=== PATIENT | female | born 1960 | race Caucasian/White ===

== ENCOUNTER 2020-05-26 04:43 | Inpatient (IN) | payer OTHER ==
[~2020-05-26] VITALS: Ht 172.7 cm; Wt 60.1 kg
--- NOTE | 2020-05-26 04:56 | PHYS DOC ---
Past Medical History Past Medical History: COPD (MARIA EUGENIA MAYEN MD) Past Surgical History: Appendectomy (MARIA EUGENIA MAYEN MD) Smoking Status: Current Every Day Smoker Alcohol Use: Heavy (MARIA EUGENIA MAYEN MD) General Adult EDM: Chief Complaint: NAUSEA/VOMITING/DIARRHA HPI: HPI: 59-year-old female with a history of COPD and presents with 1 epigastric abdominal abdominal pain and nausea vomiting. Patient states she went to bed last night felt normal woke up about hour ago with nausea vomiting and abdominal pain starting in the epigastric radiating down to lower abdomen. Denies any fevers, chills, cough, or difficulty breathing. Patient states the pain is severe in nature and worse with palpation. Patient given for Zofran prior to arrival. Patient has a emesis bag and has bilious emesis possible red areas (MARIA EUGENIA MAYEN MD) Review of Systems: Review of Systems: Constitutional: Denies fever or chills. [] Eyes: Denies change in visual acuity. [] HENT: Denies nasal congestion or sore throat. [] Respiratory: Denies cough or shortness of breath. [] Cardiovascular: Denies chest pain or edema. [] GI: Denies abdominal pain, nausea, vomiting, bloody stools or diarrhea. [] : Denies dysuria. [] Musculoskeletal: Denies back pain or joint pain. [] Integument: Denies rash. [] Neurologic: Denies headache, focal weakness or sensory changes. [] Endocrine: Denies polyuria or polydipsia. [] Lymphatic: Denies swollen glands. [] Psychiatric: Denies depression or anxiety. [] (MARIA EUGENIA MAYEN MD) Heart Score: Risk Factors: Risk Factors: DM, Current or recent (<one month) smoker, HTN, HLP, family history of CAD, obesity. Risk Scores: Score 0 - 3: 2.5% MACE over next 6 weeks - Discharge Home Score 4 - 6: 20.3% MACE over next 6 weeks - Admit for Clinical Observation Score 7 - 10: 72.7% MACE over next 6 weeks - Early Invasive Strategies (MARIA EUGENIA MAYEN MD) Physical Exam: PE: Constitutional: Well developed, well nourished, no acute distress, non-toxic appearance. HENT: No trismus Eyes: Conjunctiva clear, EOMI Neck: Normal range of motion, no tenderness, supple, no stridor. [] Cardiovascular: Regular rate/rhythm, peripheral pulse intact, TRANSPORTATION SERVICES REPRESENTATIVE intact Lungs & Thorax: No respiratory distress Abdomen: Abdomen soft with diffuse tenderness to palpation epigastric and left- sided abdomen, no guarding or rebound Skin: Diffuse: Intact, no rash Back: Full ROM Extremities: Normal inspection, no edema Neurologic: Alert and oriented X 3, normal motor function, , no focal deficits noted. Psychologic: Affect normal, judgement normal, mood normal. (MARIA EUGENIA MAYEN MD) EKG: EKG: [Normal sinus rhythm with a rate of 83 normal [place] interval, left axis deviation, prolonged QTC, normal ST segments] (MARIA EUGENIA MAYEN MD) Radiology/Procedures: Radiology/Procedures: [] (MARIA EUGENIA MAYEN MD) Radiology/Procedures: PROCEDURE: CT ABD PELV W/ IV CONTRST ONLY EXAM: CT Abdomen and Pelvis with IV contrast INDICATION: Reason: ABD PAIN, N/V / Spl. Instructions: IV OMNI 300 75 MLS / History: TECHNIQUE: Multi-detector row CT images were acquired from the lung bases through the abdomen and pelvis with the use of IV contrast. Sagittal and coronal images were acquired from the transaxial data. All CT scans performed at this facility utilize dose optimization techniques as appropriate to the exam, including the following: Automated exposure control and adjustment of the mA and/or KV according to patient size (this includes techniques or standardized protocols for targeted exams where dose is indication/reason for exam). IV CONTRAST: Administered ORAL CONTRAST: Not administered COMPARISON: None FINDINGS: LOWER CHEST: Unremarkable LIVER: Unremarkable BILIARY SYSTEM: Gallbladder is unremarkable. Bile ducts are not dilated. PANCREAS: Diffusely thickened and shows moderate amount of peripancreatic fluid. There is heterogeneous hypoattenuation to the pancreatic head. SPLEEN: Unremarkable ADRENALS: Unremarkable KIDNEYS & URETERS: Unremarkable BLADDER: Unremarkable REPRODUCTIVE ORGANS: Unremarkable GASTROINTESTINAL: The stomach shows mild gastric wall thickening., small bowel, and colon are unremarkable. The appendix is not seen and may be surgically absent. MESENTERY/PERITONEUM/RETROPERITONEUM: Unremarkable VASCULAR: Unremarkable LYMPH NODES: No adenopathy OSSEOUS & SOFT TISSUES: Unremarkable IMPRESSION: Findings of acute pancreatitis with parenchymal edema best appreciated in the pancreatic head. No overt findings of parenchymal necrosis or abscess formation. (TANGELA BELTRAN DO) Course & Med Decision Making: Course & Med Decision Making Pertinent Labs and Imaging studies reviewed. (See chart for details) [Care endorsed to Dr. Quintana with the labs, CT, disposition pending.] (MARIA EUGENIA MAYEN MD) Course & Med Decision Making ED course: Evaluation reveals a 59-year-old female who is a heavy alcohol user who presents with abdominal pain. Her lipase is greater than 14,000. Her CT scan shows an inflamed pancreas. I talked with the patient and let her know that drinking alcohol would not be an option in the future she voiced an understanding. We will go ahead and get her admitted to the hospitalist service at this time patient is agreeable. (TANGELA BELTRAN DO) Dragon Disclaimer: Dragon Disclaimer: This electronic medical record was generated, in whole or in part, using a voice recognition dictation system. (MARIA EUGENIA MAYEN MD) Departure Departure Impression: Primary Impression: Pancreatitis, alcoholic, acute Qualified Codes: K85.20 - Alcohol induced acute pancreatitis without necrosis or infection Disposition: ADMITTED INPATIENT Admitting Physician: HIMS (TANGELA BELTRAN DO) Condition: GUARDED Justicifation of Admission Dx: Justifications for Admission: Justification of Admission Dx: N/A (MARIA EUGENIA MAYEN MD) Justification of Admission Dx: Yes Comments: Acute pancreatitis (TANGELA BELTRAN DO) MARIA EUGENIA MAYEN MD May 26, 2020 04:56 TANGELA BELTRAN DO May 26, 2020 06:52
[2020-05-26 05:27] LABS: BASO % 0 % (0-3); EOS # 0.1 x10^3/uL (0.0-0.7); EOS % 1 % (0-3); HEMATOCRIT 42.6 % (36.0-47.0); HEMOGLOBIN 14.7 g/dL (12.0-15.5); LYMPH % 26 % (24-48); MEAN CORPUSCULAR HEMOGLOBIN 34 pg (25-35); MEAN CORPUSCULAR HGB CONC 35 g/dL (31-37); MEAN CORPUSCULAR VOLUME 98 fL (79-100); MONO # 0.6 x10^3/uL (0.0-1.1); MONO % 7 % (0-9); NEUT # 5.1 x10^3/uL (1.8-7.7); NEUT % 65 % (31-73); PLATELET COUNT 195 x10^3/uL (140-400); RED BLOOD COUNT 4.33 x10^6/uL (3.50-5.40); RED CELL DISTRIBUTION WIDTH 13.4 % (11.5-14.5); WHITE BLOOD COUNT 7.8 x10^3/uL (4.0-11.0)
[2020-05-26] MEDS ORDERED: ONDANSETRON PF 4 MG/2 ML VIAL. IVP ONE (05:30)
[2020-05-26] MEDS ORDERED: IV NORMAL SALINE 1000ML BAG 1,000 ML IV SCH (05:30)
[2020-05-26] MEDS ORDERED: MORPHINE SULFATE 4 MG/ML VIAL. IV ONE (05:30)
[2020-05-26 05:35] LABS: ALBUMIN 3.4 g/dL (3.4-5.0); ALBUMIN/GLOBULIN RATIO 0.9 (1.0-1.7); CALCIUM 9.5 mg/dL (8.5-10.1); CREATININE 0.8 mg/dL (0.6-1.0); GFR 73.2; TOTAL BILIRUBIN 0.4 mg/dL (0.2-1.0); TOTAL PROTEIN 7.4 g/dL (6.4-8.2)
[2020-05-26 05:36] LABS: PROTHROMBIN TIME PATIENT 11.7 SEC (11.7-14.0)
[2020-05-26] MEDS ORDERED: ACETAMINOPHEN 325 MG TABLET. PO PRN (06:15)
[2020-05-26] MEDS ORDERED: ONDANSETRON PF 4 MG/2 ML VIAL. IV PRN ×2 (06:15→09:30)
[2020-05-26] MEDS ORDERED: IOHEXOL 300 MG/ML 100ML VIAL. IV ONE (06:30)
[2020-05-26] MEDS ORDERED: CONTRAST GIVEN. MC PRN (06:30)
--- NOTE | 2020-05-26 06:43 | RAD ---
EXAM: CT Abdomen and Pelvis with IV contrast INDICATION: Reason: ABD PAIN, N/V / Spl. Instructions: IV OMNI 300 75 MLS / History: TECHNIQUE: Multi-detector row CT images were acquired from the lung bases through the abdomen and pelvis with the use of IV contrast. Sagittal and coronal images were acquired from the transaxial data. All CT scans performed at this facility utilize dose optimization techniques as appropriate to the exam, including the following: Automated exposure control and adjustment of the mA and/or KV according to patient size (this includes techniques or standardized protocols for targeted exams where dose is indication/reason for exam). IV CONTRAST: Administered ORAL CONTRAST: Not administered COMPARISON: None FINDINGS: LOWER CHEST: Unremarkable LIVER: Unremarkable BILIARY SYSTEM: Gallbladder is unremarkable. Bile ducts are not dilated. PANCREAS: Diffusely thickened and shows moderate amount of peripancreatic fluid. There is heterogeneous hypoattenuation to the pancreatic head. SPLEEN: Unremarkable ADRENALS: Unremarkable KIDNEYS & URETERS: Unremarkable BLADDER: Unremarkable REPRODUCTIVE ORGANS: Unremarkable GASTROINTESTINAL: The stomach shows mild gastric wall thickening., small bowel, and colon are unremarkable. The appendix is not seen and may be surgically absent. MESENTERY/PERITONEUM/RETROPERITONEUM: Unremarkable VASCULAR: Unremarkable LYMPH NODES: No adenopathy OSSEOUS & SOFT TISSUES: Unremarkable IMPRESSION: Findings of acute pancreatitis with parenchymal edema best appreciated in the pancreatic head. No overt findings of parenchymal necrosis or abscess formation. Electronically signed by: Pilo Kelley MD (05/26/2020 6:40 AM) [facility] [place]
--- NOTE | 2020-05-26 08:03 | PDOC1 ---
History and Physical Date of Admission Date of Admission DATE: 05/26/20 TIME: 08:03 Identification/Chief Complaint Chief Complaint seen in er with severe pancreatitis 59-year-old female with a history of COPD and presented with, epigastric abdominal abdominal pain and nausea vomiting. Patient states she went to bed last night felt normal woke up about hour ago with nausea vomiting and abdominal pain starting in the epigastric radiating down to lower abdomen. Denies any fevers, chills, cough, or difficulty breathing. Patient states the pain is severe in nature and worse with palpation. Past Medical History Past Medical History Past Medical History Past Medical History: COPD Past Surgical History: Appendectomy Smoking Status: Current Every Day Smoker Alcohol Use: Heavy FHX COPD Psych: Addictions Family History Family History: Alcohol Abuse Social History Smoke: <1 pack per day ALCOHOL: heavy Drugs: None Current Problem List Problem List Problems Medical Problems: (1) Abdominal pain Status: Acute (2) Pancreatitis, alcoholic, acute Status: Acute Current Medications Current Medications Current Medications Sodium Chloride 1,000 ml @ 1,000 mls/hr Q1H IV Last administered on 05/26/20at 05:46; Start 05/26/20 at 05:30; Stop 05/26/20 at 06:29; Status DC Ondansetron HCl (Zofran) 4 mg 1X ONCE IVP Last administered on 05/26/20at 05:44; Start 05/26/20 at 05:30; Stop 05/26/20 at 05:31; Status DC Morphine Sulfate (Morphine Sulfate) 4 mg 1X ONCE IV Last administered on 05/26/20at 05:45; Start 05/26/20 at 05:30; Stop 05/26/20 at 05:31; Status DC Iohexol (Omnipaque 300 Mg/ml) 75 ml 1X ONCE IV Last administered on 05/26/20at 06:24; Start 05/26/20 at 06:30; Stop 05/26/20 at 06:31; Status DC Info (CONTRAST GIVEN -- Rx MONITORING) 1 each PRN DAILY PRN MC SEE COMMENTS; Start 05/26/20 at 06:30; Stop 05/28/20 at 06:29 Ondansetron HCl (Zofran) 4 mg PRN Q8HRS PRN IV NAUSEA/VOMITING 1ST CHOICE; Start 05/26/20 at 06:15; Stop 05/27/20 at 06:14 Fentanyl Citrate (Fentanyl 2ml Vial) 50 mcg PRN Q1HR PRN IV SEVERE PAIN 7-10; Start 05/26/20 at 06:15; Stop 05/27/20 at 06:14 Sodium Chloride 1,000 ml @ 150 mls/hr Q6H40M IV ; Start 05/26/20 at 07:00; Stop 05/27/20 at 06:59 Acetaminophen (Tylenol) 650 mg PRN Q4HRS PRN PO FEVER > 100.3'F; Start 05/26/20 at 06:15; Stop 05/27/20 at 06:14 Multivitamins 10 ml/Thiamine HCl 100 mg/Folic Acid 1 mg/Sodium Chloride 1,011.2 ml @ 100 mls/ hr DAILY IV ; Start 05/26/20 at 07:00; Stop 05/30/20 at 19:07 Lorazepam (Ativan) 2 mg Q6H PO ; Start 05/26/20 at 07:00; Stop 05/27/20 at 13:01 Allergies Allergies: Coded Allergies: Aminoglycosides (Verified Allergy, Intermediate, 05/26/20) Cephalosporins (Verified Allergy, Intermediate, 05/26/20) Macrolide Antibiotics (Verified Allergy, Intermediate, 05/26/20) Penicillins (Verified Allergy, Intermediate, 05/26/20) Quinolones (Verified Allergy, Intermediate, 05/26/20) Sulfa (Sulfonamide Antibiotics) (Verified Allergy, Intermediate, 05/26/20) Tetracyclines (Verified Allergy, Intermediate, 05/26/20) ROS Review of System Review of Systems: Review of Systems: Constitutional: Denies fever or chills. [] Eyes: Denies change in visual acuity. [] HENT: Denies nasal congestion or sore throat. [] Respiratory: Denies cough or shortness of breath. [] Cardiovascular: Denies chest pain or edema. [] GI: pos abdominal pain, nausea, vomiting [] : Denies dysuria. [] Musculoskeletal: Denies back pain or joint pain. [] Integument: Denies rash. [] Neurologic: Denies headache, focal weakness or sensory changes. [] Endocrine: Denies polyuria or polydipsia. [] Lymphatic: Denies swollen glands. [] Psychiatric: Denies depression or anxiety. [] 14 pt ros otherwise neg Hematological and Lymphatic: No: Bleeding Problems, Blood Clots, Blood Thomas sfusions, Brusing, Night Sweats, Pallor, Swollen Lymph Nodes, Other Gastrointestinal: Yes Nausea, Yes Vomiting, Yes Abdominal Pain Musculoskeletal: No Gait Disturbance, No Joint Pain, No Joint Stiffness, No Joint Swelling, No Muscle Pain, No Muscular Weakness, No Pain In:, No Swelling In:, No Other Physical Exam Physical Exam Constitutional: Well developed, well nourished, no acute distress, non-toxic appearance. HENT: No trismus Eyes: Conjunctiva clear, EOMI Neck: Normal range of motion, no tenderness, supple, no stridor. [] Cardiovascular: Regular rate/rhythm, peripheral pulse intact, ART SUPERVISOR intact Lungs & Thorax: No respiratory distress Abdomen: Abdomen soft with diffuse tenderness to palpation epigastric and left- sided abdomen, no guarding or rebound Skin: Diffuse: Intact, no rash Back: Full ROM Extremities: Normal inspection, no edema Neurologic: Alert and oriented X 3, normal motor function, , no focal deficits noted. Psychologic: Affect normal, judgement normal, mood normal. General: Alert, Oriented X3, Cooperative HEENT: Atraumatic, EOMI, Mucous membr. moist/pink Lungs: Clear to auscultation, Normal air movement Heart: S1S2, RRR, no thrills, no gallops, no murmurs Breasts: Not examined Abdomen: No hepatosplenomegaly Rectal Exam: not examined PELVIC: Examination not indicated Extremities: No cyanosis, No edema Neuro: Normal speech, Normal tone, Sensation intact, Cranial nerves 3-12 NL Psych/Mental Status: Mood NL Vitals Vitals Vital Signs Date Time Temp Pulse Resp B/P (MAP) Pulse Ox O2 Delivery O2 Flow Rate FiO2 05/26/20 06:12 96 18 157/92 (113) 96 Nasal Cannula 2.0 05/26/20 05:11 98.2 98.2 Labs Labs Laboratory Tests Test 05/26/20 05:05 White Blood Count 7.8 x10^3/uL (4.0-11.0) Red Blood Count 4.33 x10^6/uL (3.50-5.40) Hemoglobin 14.7 g/dL (12.0-15.5) Hematocrit 42.6 % (36.0-47.0) Mean Corpuscular Volume 98 fL (79-100) Mean Corpuscular Hemoglobin 34 pg (25-35) Mean Corpuscular Hemoglobin Concent 35 g/dL (31-37) Red Cell Distribution Width 13.4 % (11.5-14.5) Platelet Count 195 x10^3/uL (140-400) Neutrophils (%) (Auto) 65 % (31-73) Lymphocytes (%) (Auto) 26 % (24-48) Monocytes (%) (Auto) 7 % (0-9) Eosinophils (%) (Auto) 1 % (0-3) Basophils (%) (Auto) 0 % (0-3) Neutrophils # (Auto) 5.1 x10^3/uL (1.8-7.7) Lymphocytes # (Auto) 2.0 x10^3/uL (1.0-4.8) Monocytes # (Auto) 0.6 x10^3/uL (0.0-1.1) Eosinophils # (Auto) 0.1 x10^3/uL (0.0-0.7) Basophils # (Auto) 0.0 x10^3/uL (0.0-0.2) Prothrombin Time 11.7 SEC (11.7-14.0) Prothromb Time International Ratio 0.9 (0.8-1.1) Activated Partial Thromboplast Time 23 SEC (24-38) Sodium Level 142 mmol/L (136-145) Potassium Level 3.0 mmol/L (3.5-5.1) Chloride Level 100 mmol/L (98-107) Carbon Dioxide Level 30 mmol/L (21-32) Anion Gap 12 (6-14) Blood Urea Nitrogen 7 mg/dL (7-20) Creatinine 0.8 mg/dL (0.6-1.0) Estimated GFR (Cockcroft-Gault) 73.2 BUN/Creatinine Ratio 9 (6-20) Glucose Level 109 mg/dL (70-99) Calcium Level 9.5 mg/dL (8.5-10.1) Total Bilirubin 0.4 mg/dL (0.2-1.0) Aspartate Amino Transf (AST/SGOT) 46 U/L (15-37) Alanine Aminotransferase (ALT/SGPT) 50 U/L (14-59) Alkaline Phosphatase 101 U/L (46-116) Total Protein 7.4 g/dL (6.4-8.2) Albumin 3.4 g/dL (3.4-5.0) Albumin/Globulin Ratio 0.9 (1.0-1.7) Lipase 96382 U/L (73-393) Laboratory Tests Test 05/26/20 05:05 White Blood Count 7.8 x10^3/uL (4.0-11.0) Red Blood Count 4.33 x10^6/uL (3.50-5.40) Hemoglobin 14.7 g/dL (12.0-15.5) Hematocrit 42.6 % (36.0-47.0) Mean Corpuscular Volume 98 fL (79-100) Mean Corpuscular Hemoglobin 34 pg (25-35) Mean Corpuscular Hemoglobin Concent 35 g/dL (31-37) Red Cell Distribution Width 13.4 % (11.5-14.5) Platelet Count 195 x10^3/uL (140-400) Neutrophils (%) (Auto) 65 % (31-73) Lymphocytes (%) (Auto) 26 % (24-48) Monocytes (%) (Auto) 7 % (0-9) Eosinophils (%) (Auto) 1 % (0-3) Basophils (%) (Auto) 0 % (0-3) Neutrophils # (Auto) 5.1 x10^3/uL (1.8-7.7) Lymphocytes # (Auto) 2.0 x10^3/uL (1.0-4.8) Monocytes # (Auto) 0.6 x10^3/uL (0.0-1.1) Eosinophils # (Auto) 0.1 x10^3/uL (0.0-0.7) Basophils # (Auto) 0.0 x10^3/uL (0.0-0.2) Prothrombin Time 11.7 SEC (11.7-14.0) Prothromb Time International Ratio 0.9 (0.8-1.1) Activated Partial Thromboplast Time 23 SEC (24-38) Sodium Level 142 mmol/L (136-145) Potassium Level 3.0 mmol/L (3.5-5.1) Chloride Level 100 mmol/L (98-107) Carbon Dioxide Level 30 mmol/L (21-32) Anion Gap 12 (6-14) Blood Urea Nitrogen 7 mg/dL (7-20) Creatinine 0.8 mg/dL (0.6-1.0) Estimated GFR (Cockcroft-Gault) 73.2 BUN/Creatinine Ratio 9 (6-20) Glucose Level 109 mg/dL (70-99) Calcium Level 9.5 mg/dL (8.5-10.1) Total Bilirubin 0.4 mg/dL (0.2-1.0) Aspartate Amino Transf (AST/SGOT) 46 U/L (15-37) Alanine Aminotransferase (ALT/SGPT) 50 U/L (14-59) Alkaline Phosphatase 101 U/L (46-116) Total Protein 7.4 g/dL (6.4-8.2) Albumin 3.4 g/dL (3.4-5.0) Albumin/Globulin Ratio 0.9 (1.0-1.7) Lipase 85238 U/L (73-393) Images Images INDICATION: Reason: ABD PAIN, N/V / Spl. Instructions: IV OMNI 300 75 MLS / History: TECHNIQUE: Multi-detector row CT images were acquired from the lung bases through the abdomen and pelvis with the use of IV contrast. Sagittal and coronal images were acquired from the transaxial data. All CT scans performed at this facility utilize dose optimization techniques as appropriate to the exam, including the following: Automated exposure control and adjustment of the mA and/or KV according to patient size (this includes techniques or standardized protocols for targeted exams where dose is indication/reason for exam). IV CONTRAST: Administered ORAL CONTRAST: Not administered COMPARISON: None FINDINGS: LOWER CHEST: Unremarkable LIVER: Unremarkable BILIARY SYSTEM: Gallbladder is unremarkable. Bile ducts are not dilated. PANCREAS: Diffusely thickened and shows moderate amount of peripancreatic fluid. There is heterogeneous hypoattenuation to the pancreatic head. SPLEEN: Unremarkable ADRENALS: Unremarkable KIDNEYS & URETERS: Unremarkable BLADDER: Unremarkable REPRODUCTIVE ORGANS: Unremarkable GASTROINTESTINAL: The stomach shows mild gastric wall thickening., small bowel, and colon are unremarkable. The appendix is not seen and may be surgically absent. MESENTERY/PERITONEUM/RETROPERITONEUM: Unremarkable VASCULAR: Unremarkable LYMPH NODES: No adenopathy OSSEOUS & SOFT TISSUES: Unremarkable IMPRESSION: Findings of acute pancreatitis with parenchymal edema best appreciated in the pancreatic head. No overt findings of parenchymal necrosis or abscess formation. Electronically signed by: Raheel Kelley MD (05/26/2020 6:40 AM) [facility] [place] DICTATED and SIGNED BY: RAHEEL KELLEY MD DATE: 05/26/20 0640 VTE Prophylaxis Ordered VTE Prophylaxis Devices: Yes VTE Pharmacological Prophylaxi: Yes Assessment/Plan Assessment/Plan impression Pancreatitis, alcoholic, acute, Alcohol induced acute pancreatitis without necrosis or infection Findings of acute pancreatitis with parenchymal edema best appreciated in the pancreatic head. ON CT 05/26 No overt findings of parenchymal necrosis or abscess formation severe alcohol abuse ADMITTED GI CONSULT NPO IV BANANA BAG PAIN CONTROL DVT PROPHYLAXIS CIWA PROTOCOL r/o gallstones for completeness. 74 MIN pt exam, chart review, > 50% of time spent with exam, chart review, pt care coordination Justicifation of Admission Dx: Justifications for Admission: Justification of Admission Dx: Yes RAYMUNDO FORD MD May 26, 2020 08:03
[2020-05-26] MEDS: MULTIVIT INFUSN,ADULT 4,VIT K 10 ML, THIAMINE INJ 100 MG, FOLIC ACID INJ 1 MG in IV NOR... IV SCH (08:11)
[2020-05-26] MEDS: LORazepam 0.5 MG TABLET PO SCH ×3 (08:19→18:09)
[2020-05-26] MEDS: fentaNYL PF VIAL 100 MCG/2 ML VIAL IV PRN ×3 (08:22→21:39)
[2020-05-26 08:38] LABS: BILIRUBIN,URINE NEGATIVE (NEG); CLARITY,URINE CLEAR; COLOR,URINE YELLOW; NITRITE,URINE NEGATIVE (NEG); PROTEIN,URINE NEGATIVE (NEG-TRACE); UROBILINOGEN,URINE 0.2 mg/dL (0.2 mg/dL)
[2020-05-26 08:50] LABS: BARBITURATES NEG (NEG); BENZODIAZEPINES NEG (NEG); CANNABINOIDS NEG (NEG); COCAINE NEG (NEG); METHADONE NEG (NEG); OPIATES POS (NEG); PHENCYCLIDINE NEG (NEG)
[2020-05-26 08:57] LABS: AMPHETAMINE/METHAMPHETAMINE NEG (NEG)
[2020-05-26 09:00] VITALS: BP 174/108
[2020-05-26 09:04] LABS: BACTERIA,URINE FEW /HPF (0-FEW); RBC,URINE 0 /HPF (0-2); SQUAMOUS EPITHELIAL CELL,UR MOD /LPF; WBC,URINE 0 /HPF (0-4)
--- NOTE | 2020-05-26 09:20 | PDOC2 ---
GI CONSULT Reason For Consult: pancreatitis HPI: HPI: 59 y/o female seen in ER. "I've been sick for awhile." Describes coughing in the mornings, then "throwing up" phlegm. Epigastric/mid abd pain began yesterday, some radiation to back (though chronic back pain), associated w/ "dark" emesis. H/o GERD untreated. No dysphagia, diarrhea, constipation, hematochezia, melena, change in appetite, or weight loss. Colonoscopy @ [facility] reportedly normal ~4 years ago. No previous EGD. No GB, liver, pancreas, or PUD history. Ibuprofen daily for back pain. PMH: PMH: COPD, anxiety, insomnia, appendectomy Social History: Smoke: <1 pack per day ALCOHOL: heavy (four 25 oz beers daily) Drugs: None ROS: GEN: Denies fevers, chills, sweats HEENT: Denies blurred vision, sore throat CV: Denies chest pain RESP: +SOA +cough GI: Per HPI : Denies hematuria, dysuria ENDO: Denies weight changes NEURO: Denies confusion, dizziness MSK: +back pain SKIN: Denies jaundice, pruritus Vitals: Vitals: Vital Signs Date Time Temp Pulse Resp B/P (MAP) Pulse Ox O2 Delivery O2 Flow Rate FiO2 05/26/20 09:00 97.4 101 20 174/108 (130) 97 Nasal Cannula 97.4 05/26/20 08:22 2.0 Labs: Labs: Laboratory Tests Test 05/26/20 05:05 05/26/20 08:00 05/26/20 08:25 White Blood Count 7.8 x10^3/uL (4.0-11.0) Red Blood Count 4.33 x10^6/uL (3.50-5.40) Hemoglobin 14.7 g/dL (12.0-15.5) Hematocrit 42.6 % (36.0-47.0) Mean Corpuscular Volume 98 fL (79-100) Mean Corpuscular Hemoglobin 34 pg (25-35) Mean Corpuscular Hemoglobin Concent 35 g/dL (31-37) Red Cell Distribution Width 13.4 % (11.5-14.5) Platelet Count 195 x10^3/uL (140-400) Neutrophils (%) (Auto) 65 % (31-73) Lymphocytes (%) (Auto) 26 % (24-48) Monocytes (%) (Auto) 7 % (0-9) Eosinophils (%) (Auto) 1 % (0-3) Basophils (%) (Auto) 0 % (0-3) Neutrophils # (Auto) 5.1 x10^3/uL (1.8-7.7) Lymphocytes # (Auto) 2.0 x10^3/uL (1.0-4.8) Monocytes # (Auto) 0.6 x10^3/uL (0.0-1.1) Eosinophils # (Auto) 0.1 x10^3/uL (0.0-0.7) Basophils # (Auto) 0.0 x10^3/uL (0.0-0.2) Prothrombin Time 11.7 SEC (11.7-14.0) Prothromb Time International Ratio 0.9 (0.8-1.1) Activated Partial Thromboplast Time 23 SEC (24-38) Sodium Level 142 mmol/L (136-145) Potassium Level 3.0 mmol/L (3.5-5.1) Chloride Level 100 mmol/L (98-107) Carbon Dioxide Level 30 mmol/L (21-32) Anion Gap 12 (6-14) Blood Urea Nitrogen 7 mg/dL (7-20) Creatinine 0.8 mg/dL (0.6-1.0) Estimated GFR (Cockcroft-Gault) 73.2 BUN/Creatinine Ratio 9 (6-20) Glucose Level 109 mg/dL (70-99) Calcium Level 9.5 mg/dL (8.5-10.1) Total Bilirubin 0.4 mg/dL (0.2-1.0) Aspartate Amino Transf (AST/SGOT) 46 U/L (15-37) Alanine Aminotransferase (ALT/SGPT) 50 U/L (14-59) Alkaline Phosphatase 101 U/L (46-116) Total Protein 7.4 g/dL (6.4-8.2) Albumin 3.4 g/dL (3.4-5.0) Albumin/Globulin Ratio 0.9 (1.0-1.7) Lipase 44449 U/L (73-393) Urine Opiates Screen Pos (NEG) Urine Methadone Screen Neg (NEG) Urine Barbiturates Neg (NEG) Urine Phencyclidine Screen Neg (NEG) Urine Amphetamine/Methamphetamine Neg (NEG) Urine Benzodiazepines Screen Neg (NEG) Urine Cocaine Screen Neg (NEG) Urine Cannabinoids Screen Neg (NEG) Urine Ethyl Alcohol Pos (NEG) Urine Collection Type Unknown Urine Color Yellow Urine Clarity Clear Urine pH 7.0 (<5.0-8.0) Urine Specific [place] 1.020 (1.000-1.030) Urine Protein Negative mg/dL (NEG-TRACE) Urine Glucose (UA) Negative mg/dL (NEG) Urine Ketones (Stick) Negative mg/dL (NEG) Urine Blood Negative (NEG) Urine Nitrite Negative (NEG) Urine Bilirubin Negative (NEG) Urine Urobilinogen Dipstick 0.2 mg/dL (0.2 mg/dL) Urine Leukocyte Esterase Negative (NEG) Urine RBC 0 /HPF (0-2) Urine WBC 0 /HPF (0-4) Urine Squamous Epithelial Cells Mod /LPF Urine Bacteria Few /HPF (0-FEW) Allergies: Coded Allergies: Aminoglycosides (Verified Allergy, Intermediate, 05/26/20) Cephalosporins (Verified Allergy, Intermediate, 05/26/20) Macrolide Antibiotics (Verified Allergy, Intermediate, 05/26/20) Penicillins (Verified Allergy, Intermediate, 05/26/20) Quinolones (Verified Allergy, Intermediate, 05/26/20) Sulfa (Sulfonamide Antibiotics) (Verified Allergy, Intermediate, 05/26/20) Tetracyclines (Verified Allergy, Intermediate, 05/26/20) Medications: Current Medications Medications (Trade) Dose Ordered Sig/Kurt Route PRN Reason Start Time Stop Time Status Last Admin Dose Admin Sodium Chloride 1,000 ml @ 1,000 mls/hr Q1H IV 05/26/20 05:30 05/26/20 06:29 DC 05/26/20 05:46 Ondansetron HCl (Zofran) 4 mg 1X ONCE IVP 05/26/20 05:30 05/26/20 05:31 DC 05/26/20 05:44 Morphine Sulfate (Morphine Sulfate) 4 mg 1X ONCE IV 05/26/20 05:30 05/26/20 05:31 DC 05/26/20 05:45 Iohexol (Omnipaque 300 Mg/ml) 75 ml 1X ONCE IV 7/20/20 06:30 05/26/20 06:31 DC 05/26/20 06:24 Fentanyl Citrate (Fentanyl 2ml Vial) 50 mcg PRN Q1HR PRN IV SEVERE PAIN 7-10 05/26/20 06:15 05/27/20 06:14 05/26/20 08:22 Multivitamins 10 ml/Thiamine HCl 100 mg/Folic Acid 1 mg/Sodium Chloride 1,011.2 ml @ 100 mls/ hr DAILY IV 05/26/20 07:00 05/30/20 19:07 05/26/20 08:11 Lorazepam (Ativan) 2 mg Q6H PO 05/26/20 07:00 05/27/20 13:01 05/26/20 08:19 Imaging: Imaging: CT A/P IMPRESSION: Findings of acute pancreatitis with parenchymal edema best appreciated in the pancreatic head. No overt findings of parenchymal necrosis or abscess formation. PE: GEN: NAD HEENT: Atraumatic, PERRL LUNGS: diminished HEART: RRR ABD: quiet, soft, epigastrium quite tender to light touch EXTREMITY: No edema SKIN: No rashes, no jaundice NEURO/PSYCH: A & O 3, drowsy A/P: A/P: Pancreatitis - likely 2/2 to alcohol GERD, possible gastric wall thickening on CT CRC screen - UTD Chronic back pain, NSAID use -- NPO. IVF, withdrawal precautions, and pain control per primary. IV PPI. Abd US r/o gallstones for completeness. DEEJAY GARIBAY May 26, 2020 09:20
[2020-05-26] MEDS ORDERED: MULTIVIT INFUSN,ADULT 4,VIT K 10 ML, THIAMINE INJ 100 MG, FOLIC ACID INJ 1 MG in IV NOR... IV ONE (09:30)
[2020-05-26] MEDS ORDERED: ACETAMINOPHEN 650 MG SUPP.RECT. PR PRN (09:30)
[2020-05-26] MEDS ORDERED: DOCUSATE SODIUM 100 MG CAPSULE. PO PRN (09:30)
[2020-05-26] MEDS ORDERED: 0.9 % SODIUM CHLORIDE 10 ML DISP.SYRIN. IV PRN (09:30)
[2020-05-26] MEDS ORDERED: SODIUM PHOSPHATES 19/7GM 133 ML ENEMA. PR PRN (09:30)
--- NOTE | 2020-05-26 10:00 | NUR ---
admitted from the er with upper quad pain/pancreatitis. she is drowsy and does not want to answer questions. states she is on 2 meds and [facility] called and got a list of her medication. she denied that she had HTN but is on a bp med. poor historian. does state that she drinks alcohol daily 4 large tallboys daily . last drink was last night before the pain and emesis
[2020-05-26] MEDS ORDERED: METH-38 PO (10:27)
[2020-05-26] MEDS ORDERED: HYDR25TA PO (10:27)
[2020-05-26] MEDS ORDERED: PRAZ1CAP2 PO (10:27)
[2020-05-26] MEDS ORDERED: TIOT18CA IH (10:27)
[2020-05-26] MEDS ORDERED: ALBU2.5V8 IH (10:27)
[2020-05-26] MEDS ORDERED: VENL150T PO (10:27)
[2020-05-26] MEDS ORDERED: TRAZ-118 PO (10:27)
[2020-05-26 11:00] VITALS: BP 173/107
--- NOTE | 2020-05-26 11:50 | EKG ---
[facility] [address] [place] [address] Test Date: 2020-05-26 Test Time: 05:36:25 Pat Name: MILES SILVESTRE Department: Room: Gender: F Range [employer]ologist: : 1960 Requested By: MARIA EUGENIA MAYEN Order Number: [id number] Reading MD: Measurements Intervals [place] Rate: 83 P: 51 AK: 172 QRS: -15 QRSD: 84 T: 60 QT: 408 QTc: 486 Interpretive Statements SINUS RHYTHM LEFTWARD AXIS R-S TRANSITION ZONE IN V LEADS DISPLACED TO THE RIGHT PROLONGED QT NO SPECIFIC ECG ABNORMALITIES RI6.02 No previous ECG available for comparison
[2020-05-26] MEDS: IPRATRPIUM/ALBUTEROL 0.5/2.5MG 3 ML NEBU. NEB SCH ×3 (12:22→19:49)
[2020-05-26] MEDS ORDERED: ALBUTEROL SULFATE 2.5 MG/3 ML NEBU. NEB PRN (12:30)
--- NOTE | 2020-05-26 12:31 | RAD ---
Examination: Ultrasound abdomen limited HISTORY: History of pancreatitis, gallstones COMPARISON: None available. FINDINGS: Mild increased echogenicity identified in the liver likely hepatic steatosis. The liver length measures 16.4 cm. No evidence of gallstones. The right kidney measures 10.7 cm in length. Hypoechogenicity identified in the pancreas probably secondary to pancreatitis. The visualized IVC is normal limits of dimension. IMPRESSION: 1. Hepatic steatosis. 2. Prominent appearing and hypoechoic pancreas probably known pancreatitis. Electronically signed by: Hayden Cruz MD (05/26/2020 12:28 PM) [id number]
[2020-05-26] MEDS: ENOXAPARIN 40 MG/0.4 ML SYRINGE. SQ SCH (12:50)
[2020-05-26] MEDS: hydrALAZINE 20 MG/ML VIAL. IVP PRN ×2 (12:52→20:09)
[2020-05-26] MEDS: hydrOXYzine 25 MG TABLET PO PRN (14:36)
[2020-05-26] MEDS: METHOCARBAMOL 750 MG TABLET PO PRN (14:36)
[2020-05-26] MEDS: VENLAFAXINE 50 MG TABLET. PO SCH ×2 (14:40→21:27)
[2020-05-26 15:11] VITALS: BP 139/84
--- NOTE | 2020-05-26 15:43 | NUR ---
medications renewed and given with sips of water; otherwise remains npo. ambulated to the bathroom with assist. states that her legs feel shaky. Addendum: 05/26/20 at 1546 by OMI DECKER RN was given a dose of hydralazine and blood pressure is better.
--- NOTE | 2020-05-26 16:57 | NUR ---
SW following. Spoke with RN and reviewed chart. Pt from home. Pt on 2l 02. Pt on IV Fentanyl. Pt's toxicology screen positive for alcohol. SW completed referral to PAT. Pt seen by Portillo with PAT today. Pt had [facility] and is not interested in treatment at this time. Pt reported he drinks 4 32oz beers daily and has contact information for out-patient substance abuse treatment with the [facility]. Pt denies SI/HI per Portillo. ENA to follow for discharge planning.
[2020-05-26] MEDS: IV NORMAL SALINE 1000ML BAG 1,000 ML IV SCH ×3 (18:09→21:33)
[2020-05-26 19:00] VITALS: BP 169/105
[2020-05-26] MEDS: PRAZOSIN 1 MG CAPSULE. PO SCH (21:27)
[2020-05-26] MEDS: traZODone 50 MG TABLET. PO SCH (21:27)
[2020-05-26 23:00] VITALS: BP 156/75
[2020-05-27] MEDS: LORazepam 0.5 MG TABLET PO SCH (01:00)
[2020-05-27] MEDS: IV NORMAL SALINE 1000ML BAG 1,000 ML IV SCH ×2 (01:27→03:00)
[2020-05-27 03:00] VITALS: BP 141/86
[2020-05-27] MEDS: METHOCARBAMOL 750 MG TABLET PO PRN ×3 (03:55→20:47)
[2020-05-27 06:47] LABS: BASO % 0 % (0-3); EOS % 0 % (0-3); HEMATOCRIT 39.7 % (36.0-47.0); HEMOGLOBIN 13.4 g/dL (12.0-15.5); LYMPH # 0.6 x10^3/uL (1.0-4.8); LYMPH % 5 % (24-48); MEAN CORPUSCULAR HEMOGLOBIN 34 pg (25-35); MEAN CORPUSCULAR HGB CONC 34 g/dL (31-37); MEAN CORPUSCULAR VOLUME 100 fL (79-100); MONO # 0.6 x10^3/uL (0.0-1.1); MONO % 6 % (0-9); NEUT # 9.1 x10^3/uL (1.8-7.7); NEUT % 88 % (31-73); PLATELET COUNT 142 x10^3/uL (140-400); RED BLOOD COUNT 3.96 x10^6/uL (3.50-5.40); RED CELL DISTRIBUTION WIDTH 13.3 % (11.5-14.5); WHITE BLOOD COUNT 10.4 x10^3/uL (4.0-11.0)
[2020-05-27 07:00] VITALS: BP 174/99
[2020-05-27 07:07] LABS: ALBUMIN 2.7 g/dL (3.4-5.0); ALBUMIN/GLOBULIN RATIO 0.8 (1.0-1.7); CALCIUM 8.4 mg/dL (8.5-10.1); CREATININE 0.7 mg/dL (0.6-1.0); GFR 85.4; POTASSIUM 3.4 mmol/L (3.5-5.1); TOTAL BILIRUBIN 0.5 mg/dL (0.2-1.0); TOTAL PROTEIN 6.1 g/dL (6.4-8.2)
[2020-05-27] MEDS: IPRATRPIUM/ALBUTEROL 0.5/2.5MG 3 ML NEBU. NEB SCH ×4 (07:13→19:24)
[2020-05-27 07:30] LABS: % LYMPHS 1 % (24-48); % MONOS 1 % (0-10); % SEGS 98 % (35-66); PLT ESTIMATE ADEQUATE (ADEQUATE)
--- NOTE | 2020-05-27 08:23 | PDOC ---
PROGRESS NOTES Chief Complaint Chief Complaint VTE Prophylaxis Ordered VTE Prophylaxis Devices: Yes VTE Pharmacological Prophylaxi: Yes IMPRESSION========= Pancreatitis, alcoholic, acute, Alcohol induced acute pancreatitis without necrosis or infection Findings of acute pancreatitis with parenchymal edema best appreciated in the pancreatic head. ON CT 05/26 No overt findings of parenchymal necrosis or abscess formation severe alcohol abuse copd ADMITTED GI CONSULT NPO IV BANANA BAG PAIN CONTROL DVT PROPHYLAXIS CIWA PROTOCOL r/o gallstones for completeness. consult pulm 39 MIN pt exam, chart review, > 50% of time spent with exam, chart review, pt care coordination Justicifation of Admission Dx: Justicifation of Admission Dx: Justifications for Admission: Justification of Admission Dx: Yes History of Present Illness History of Present Illness Identification/Chief Complaint Chief Complaint seen in er with severe pancreatitis 59-year-old female with a history of COPD and presented with, epigastric abdominal abdominal pain and nausea vomiting. Patient states she went to bed last night felt normal woke up about hour ago with nausea vomiting and abdominal pain starting in the epigastric radiating down to lower abdomen. Denies any fevers, chills, cough, or difficulty breathing. Patient states the pain is severe in nature and worse with palpation. Past Medical History Past Medical History Past Medical History Past Medical History: COPD Past Surgical History: Appendectomy Smoking Status: Current Every Day Smoker Alcohol Use: Heavy FHX COPD Psych: Addictions Family History Family History: Alcohol Abuse Social History Smoke: <1 pack per day ALCOHOL: heavy Drugs: None Vitals Vitals Vital Signs Date Time Temp Pulse Resp B/P (MAP) Pulse Ox O2 Delivery O2 Flow Rate FiO2 05/27/20 07:57 Nasal Cannula 2.5 05/27/20 07:14 96 05/27/20 07:00 97.8 106 18 174/99 (124) 97.8 Physical Exam General: Alert, Oriented X3, Cooperative, mild distress Heart: Regular rate Lungs: Other (diminished) Abdomen: No hepatosplenomegaly Extremities: No cyanosis, No edema Labs LABS Examination: Ultrasound abdomen limited HISTORY: History of pancreatitis, gallstones COMPARISON: None available. FINDINGS: Mild increased echogenicity identified in the liver likely hepatic steatosis. The liver length measures 16.4 cm. No evidence of gallstones. The right kidney measures 10.7 cm in length. Hypoechogenicity identified in the pancreas probably secondary to pancreatitis. The visualized IVC is normal limits of dimension. IMPRESSION: 1. Hepatic steatosis. 2. Prominent appearing and hypoechoic pancreas probably known pancreatitis. Electronically signed by: Hayden Cruz MD (05/26/2020 12:28 PM) [id number] Laboratory Tests Test 05/26/20 08:25 05/27/20 06:10 Urine Collection Type Unknown Urine Color Yellow Urine Clarity Clear Urine pH 7.0 (<5.0-8.0) Urine Specific [place] 1.020 (1.000-1.030) Urine Protein Negative mg/dL (NEG-TRACE) Urine Glucose (UA) Negative mg/dL (NEG) Urine Ketones (Stick) Negative mg/dL (NEG) Urine Blood Negative (NEG) Urine Nitrite Negative (NEG) Urine Bilirubin Negative (NEG) Urine Urobilinogen Dipstick 0.2 mg/dL (0.2 mg/dL) Urine Leukocyte Esterase Negative (NEG) Urine RBC 0 /HPF (0-2) Urine WBC 0 /HPF (0-4) Urine Squamous Epithelial Cells Mod /LPF Urine Bacteria Few /HPF (0-FEW) White Blood Count 10.4 x10^3/uL (4.0-11.0) Red Blood Count 3.96 x10^6/uL (3.50-5.40) Hemoglobin 13.4 g/dL (12.0-15.5) Hematocrit 39.7 % (36.0-47.0) Mean Corpuscular Volume 100 fL (79-100) Mean Corpuscular Hemoglobin 34 pg (25-35) Mean Corpuscular Hemoglobin Concent 34 g/dL (31-37) Red Cell Distribution Width 13.3 % (11.5-14.5) Platelet Count 142 x10^3/uL (140-400) Neutrophils (%) (Auto) 88 % (31-73) Lymphocytes (%) (Auto) 5 % (24-48) Monocytes (%) (Auto) 6 % (0-9) Eosinophils (%) (Auto) 0 % (0-3) Basophils (%) (Auto) 0 % (0-3) Neutrophils # (Auto) 9.1 x10^3/uL (1.8-7.7) Lymphocytes # (Auto) 0.6 x10^3/uL (1.0-4.8) Monocytes # (Auto) 0.6 x10^3/uL (0.0-1.1) Eosinophils # (Auto) 0.0 x10^3/uL (0.0-0.7) Basophils # (Auto) 0.0 x10^3/uL (0.0-0.2) Segmented Neutrophils % 98 % (35-66) Lymphocytes % 1 % (24-48) Monocytes % 1 % (0-10) Platelet Estimate Adequate (ADEQUATE) Sodium Level 141 mmol/L (136-145) Potassium Level 3.4 mmol/L (3.5-5.1) Chloride Level 105 mmol/L (98-107) Carbon Dioxide Level 29 mmol/L (21-32) Anion Gap 7 (6-14) Blood Urea Nitrogen 10 mg/dL (7-20) Creatinine 0.7 mg/dL (0.6-1.0) Estimated GFR (Cockcroft-Gault) 85.4 BUN/Creatinine Ratio 14 (6-20) Glucose Level 100 mg/dL (70-99) Calcium Level 8.4 mg/dL (8.5-10.1) Total Bilirubin 0.5 mg/dL (0.2-1.0) Aspartate Amino Transf (AST/SGOT) 24 U/L (15-37) Alanine Aminotransferase (ALT/SGPT) 30 U/L (14-59) Alkaline Phosphatase 78 U/L (46-116) Total Protein 6.1 g/dL (6.4-8.2) Albumin 2.7 g/dL (3.4-5.0) Albumin/Globulin Ratio 0.8 (1.0-1.7) Assessment and Plan Assessmemt and Plan Problems Medical Problems: (1) Abdominal pain Status: Acute (2) Pancreatitis, alcoholic, acute Status: Acute Comment Review of Relevant I have reviewed the following items kamlesh (where applicable) has been applied. Labs Laboratory Tests Test 05/26/20 05:05 05/26/20 08:00 05/26/20 08:25 05/27/20 06:10 White Blood Count 7.8 x10^3/uL (4.0-11.0) 10.4 x10^3/uL (4.0-11.0) Red Blood Count 4.33 x10^6/uL (3.50-5.40) 3.96 x10^6/uL (3.50-5.40) Hemoglobin 14.7 g/dL (12.0-15.5) 13.4 g/dL (12.0-15.5) Hematocrit 42.6 % (36.0-47.0) 39.7 % (36.0-47.0) Mean Corpuscular Volume 98 fL (79-100) 100 fL (79-100) Mean Corpuscular Hemoglobin 34 pg (25-35) 34 pg (25-35) Mean Corpuscular Hemoglobin Concent 35 g/dL (31-37) 34 g/dL (31-37) Red Cell Distribution Width 13.4 % (11.5-14.5) 13.3 % (11.5-14.5) Platelet Count 195 x10^3/uL (140-400) 142 x10^3/uL (140-400) Neutrophils (%) (Auto) 65 % (31-73) 88 % (31-73) Lymphocytes (%) (Auto) 26 % (24-48) 5 % (24-48) Monocytes (%) (Auto) 7 % (0-9) 6 % (0-9) Eosinophils (%) (Auto) 1 % (0-3) 0 % (0-3) Basophils (%) (Auto) 0 % (0-3) 0 % (0-3) Neutrophils # (Auto) 5.1 x10^3/uL (1.8-7.7) 9.1 x10^3/uL (1.8-7.7) Lymphocytes # (Auto) 2.0 x10^3/uL (1.0-4.8) 0.6 x10^3/uL (1.0-4.8) Monocytes # (Auto) 0.6 x10^3/uL (0.0-1.1) 0.6 x10^3/uL (0.0-1.1) Eosinophils # (Auto) 0.1 x10^3/uL (0.0-0.7) 0.0 x10^3/uL (0.0-0.7) Basophils # (Auto) 0.0 x10^3/uL (0.0-0.2) 0.0 x10^3/uL (0.0-0.2) Prothrombin Time 11.7 SEC (11.7-14.0) Prothromb Time International Ratio 0.9 (0.8-1.1) Activated Partial Thromboplast Time 23 SEC (24-38) Sodium Level 142 mmol/L (136-145) 141 mmol/L (136-145) Potassium Level 3.0 mmol/L (3.5-5.1) 3.4 mmol/L (3.5-5.1) Chloride Level 100 mmol/L (98-107) 105 mmol/L (98-107) Carbon Dioxide Level 30 mmol/L (21-32) 29 mmol/L (21-32) Anion Gap 12 (6-14) 7 (6-14) Blood Urea Nitrogen 7 mg/dL (7-20) 10 mg/dL (7-20) Creatinine 0.8 mg/dL (0.6-1.0) 0.7 mg/dL (0.6-1.0) Estimated GFR (Cockcroft-Gault) 73.2 85.4 BUN/Creatinine Ratio 9 (6-20) 14 (6-20) Glucose Level 109 mg/dL (70-99) 100 mg/dL (70-99) Calcium Level 9.5 mg/dL (8.5-10.1) 8.4 mg/dL (8.5-10.1) Total Bilirubin 0.4 mg/dL (0.2-1.0) 0.5 mg/dL (0.2-1.0) Aspartate Amino Transf (AST/SGOT) 46 U/L (15-37) 24 U/L (15-37) Alanine Aminotransferase (ALT/SGPT) 50 U/L (14-59) 30 U/L (14-59) Alkaline Phosphatase 101 U/L (46-116) 78 U/L (46-116) Total Protein 7.4 g/dL (6.4-8.2) 6.1 g/dL (6.4-8.2) Albumin 3.4 g/dL (3.4-5.0) 2.7 g/dL (3.4-5.0) Albumin/Globulin Ratio 0.9 (1.0-1.7) 0.8 (1.0-1.7) Lipase 92851 U/L (73-393) Urine Opiates Screen Pos (NEG) Urine Methadone Screen Neg (NEG) Urine Barbiturates Neg (NEG) Urine Phencyclidine Screen Neg (NEG) Urine Amphetamine/Methamphetamine Neg (NEG) Urine Benzodiazepines Screen Neg (NEG) Urine Cocaine Screen Neg (NEG) Urine Cannabinoids Screen Neg (NEG) Urine Ethyl Alcohol Pos (NEG) Urine Collection Type Unknown Urine Color Yellow Urine Clarity Clear Urine pH 7.0 (<5.0-8.0) Urine Specific [place] 1.020 (1.000-1.030) Urine Protein Negative mg/dL (NEG-TRACE) Urine Glucose (UA) Negative mg/dL (NEG) Urine Ketones (Stick) Negative mg/dL (NEG) Urine Blood Negative (NEG) Urine Nitrite Negative (NEG) Urine Bilirubin Negative (NEG) Urine Urobilinogen Dipstick 0.2 mg/dL (0.2 mg/dL) Urine Leukocyte Esterase Negative (NEG) Urine RBC 0 /HPF (0-2) Urine WBC 0 /HPF (0-4) Urine Squamous Epithelial Cells Mod /LPF Urine Bacteria Few /HPF (0-FEW) Segmented Neutrophils % 98 % (35-66) Lymphocytes % 1 % (24-48) Monocytes % 1 % (0-10) Platelet Estimate Adequate (ADEQUATE) Laboratory Tests Test 05/26/20 08:25 05/27/20 06:10 Urine Collection Type Unknown Urine Color Yellow Urine Clarity Clear Urine pH 7.0 (<5.0-8.0) Urine Specific [place] 1.020 (1.000-1.030) Urine Protein Negative mg/dL (NEG-TRACE) Urine Glucose (UA) Negative mg/dL (NEG) Urine Ketones (Stick) Negative mg/dL (NEG) Urine Blood Negative (NEG) Urine Nitrite Negative (NEG) Urine Bilirubin Negative (NEG) Urine Urobilinogen Dipstick 0.2 mg/dL (0.2 mg/dL) Urine Leukocyte Esterase Negative (NEG) Urine RBC 0 /HPF (0-2) Urine WBC 0 /HPF (0-4) Urine Squamous Epithelial Cells Mod /LPF Urine Bacteria Few /HPF (0-FEW) White Blood Count 10.4 x10^3/uL (4.0-11.0) Red Blood Count 3.96 x10^6/uL (3.50-5.40) Hemoglobin 13.4 g/dL (12.0-15.5) Hematocrit 39.7 % (36.0-47.0) Mean Corpuscular Volume 100 fL (79-100) Mean Corpuscular Hemoglobin 34 pg (25-35) Mean Corpuscular Hemoglobin Concent 34 g/dL (31-37) Red Cell Distribution Width 13.3 % (11.5-14.5) Platelet Count 142 x10^3/uL (140-400) Neutrophils (%) (Auto) 88 % (31-73) Lymphocytes (%) (Auto) 5 % (24-48) Monocytes (%) (Auto) 6 % (0-9) Eosinophils (%) (Auto) 0 % (0-3) Basophils (%) (Auto) 0 % (0-3) Neutrophils # (Auto) 9.1 x10^3/uL (1.8-7.7) Lymphocytes # (Auto) 0.6 x10^3/uL (1.0-4.8) Monocytes # (Auto) 0.6 x10^3/uL (0.0-1.1) Eosinophils # (Auto) 0.0 x10^3/uL (0.0-0.7) Basophils # (Auto) 0.0 x10^3/uL (0.0-0.2) Segmented Neutrophils % 98 % (35-66) Lymphocytes % 1 % (24-48) Monocytes % 1 % (0-10) Platelet Estimate Adequate (ADEQUATE) Sodium Level 141 mmol/L (136-145) Potassium Level 3.4 mmol/L (3.5-5.1) Chloride Level 105 mmol/L (98-107) Carbon Dioxide Level 29 mmol/L (21-32) Anion Gap 7 (6-14) Blood Urea Nitrogen 10 mg/dL (7-20) Creatinine 0.7 mg/dL (0.6-1.0) Estimated GFR (Cockcroft-Gault) 85.4 BUN/Creatinine Ratio 14 (6-20) Glucose Level 100 mg/dL (70-99) Calcium Level 8.4 mg/dL (8.5-10.1) Total Bilirubin 0.5 mg/dL (0.2-1.0) Aspartate Amino Transf (AST/SGOT) 24 U/L (15-37) Alanine Aminotransferase (ALT/SGPT) 30 U/L (14-59) Alkaline Phosphatase 78 U/L (46-116) Total Protein 6.1 g/dL (6.4-8.2) Albumin 2.7 g/dL (3.4-5.0) Albumin/Globulin Ratio 0.8 (1.0-1.7) Medications Current Medications Sodium Chloride 1,000 ml @ 1,000 mls/hr Q1H IV Last administered on 05/26/20at 05:46; Start 05/26/20 at 05:30; Stop 05/26/20 at 06:29; Status DC Ondansetron HCl (Zofran) 4 mg 1X ONCE IVP Last administered on 05/26/20at 05:44; Start 05/26/20 at 05:30; Stop 05/26/20 at 05:31; Status DC Morphine Sulfate (Morphine Sulfate) 4 mg 1X ONCE IV Last administered on 05/26/20at 05:45; Start 05/26/20 at 05:30; Stop 05/26/20 at 05:31; Status DC Iohexol (Omnipaque 300 Mg/ml) 75 ml 1X ONCE IV Last administered on 05/26/20at 06:24; Start 05/26/20 at 06:30; Stop 05/26/20 at 06:31; Status DC Info (CONTRAST GIVEN -- Rx MONITORING) 1 each PRN DAILY PRN MC SEE COMMENTS; Start 05/26/20 at 06:30; Stop 05/28/20 at 06:29 Ondansetron HCl (Zofran) 4 mg PRN Q8HRS PRN IV NAUSEA/VOMITING 1ST CHOICE; Start 05/26/20 at 06:15; Stop 05/26/20 at 09:21; Status DC Fentanyl Citrate (Fentanyl 2ml Vial) 50 mcg PRN Q1HR PRN IV SEVERE PAIN 7-10 Last administered on 05/26/20at 21:39; Start 05/26/20 at 06:15; Stop 05/27/20 at 06:14; Status DC Sodium Chloride 1,000 ml @ 150 mls/hr Q6H40M IV Last administered on 05/27/20at 01:27; Start 05/26/20 at 07:00; Stop 05/27/20 at 06:59; Status DC Acetaminophen (Tylenol) 650 mg PRN Q4HRS PRN PO FEVER > 100.3'F; Start 05/26/20 at 06:15; Stop 05/27/20 at 06:14; Status DC Multivitamins 10 ml/Thiamine HCl 100 mg/Folic Acid 1 mg/Sodium Chloride 1,011.2 ml @ 100 mls/ hr DAILY IV Last administered on 05/26/20at 08:11; Start 05/26/20 at 07:00; Stop 05/30/20 at 19:07 Lorazepam (Ativan) 2 mg Q6H PO Last administered on 05/27/20at 01:00; Start 05/26/20 at 07:00; Stop 05/27/20 at 07:57; Status DC Sodium Chloride (Normal Saline Flush) 3 ml QSHIFT PRN IV AFTER MEDS AND BLOOD DRAWS; Start 05/26/20 at 09:30 Multivitamins 10 ml/Thiamine HCl 100 mg/Folic Acid 1 mg/Sodium Chloride 1,011.2 ml @ 125 mls/ hr 1X ONCE IV ; Start 05/26/20 at 09:30; Stop 05/26/20 at 09:21; Status DC Ondansetron HCl (Zofran) 4 mg PRN Q4HRS PRN IV NAUSEA/VOMITING; Start 05/26/20 at 09:30 Acetaminophen (Tylenol Supp) 650 mg PRN Q4HRS PRN CA TEMP OVER 100.4F OR MILD PAIN; Start 05/26/20 at 09:30 Sodium Monofluorophosphate (Fleet Adult) 133 ml PRN DAILY PRN CA CONSTIPATION; Start 05/26/20 at 09:30 Docusate Sodium (Colace) 100 mg PRN BID PRN PO HARD STOOLS; Start 05/26/20 at 09:30 Albuterol/ Ipratropium (Duoneb) 3 ml Q4H NEB Last administered on 05/26/20at 19:49; Start 05/26/20 at 09:30; Stop 05/26/20 at 20:21; Status DC Lorazepam (Ativan) 0.5 mg PRN Q4HRS PRN PO ANXIETY / AGITATION; Start 05/26/20 at 09:30 Lorazepam (Ativan Inj) 2 mg PRN Q4HRS PRN IV ANXIETY / AGITATION Last administered on 05/27/20at 01:24; Start 05/26/20 at 09:30 Enoxaparin Sodium (Lovenox 40mg Syringe) 40 mg Q24H SQ Last administered on 05/26/20at 12:50; Start 05/26/20 at 09:30 Pantoprazole Sodium (PROTONIX VIAL for IV PUSH) 40 mg DAILYAC IVP ; Start 05/27/20 at 07:30 Albuterol Sulfate (Ventolin Neb Soln) 2.5 mg PRN Q4HRS PRN NEB WHEEZING; Start 05/26/20 at 12:30 Hydroxyzine HCl (Atarax) 25 mg TID PRN PO ANXIETY Last administered on 05/26/20at 14:36; Start 05/26/20 at 12:30 Methocarbamol (Robaxin) 750 mg TID PRN PO MUSCLE SPASMS Last administered on 05/27/20at 03:55; Start 05/26/20 at 12:30 Prazosin HCl (Minipress) 1 mg QHS PO Last administered on 05/26/20at 21:27; Start 05/26/20 at 21:00 Trazodone HCl (Desyrel) 150 mg QHS PO Last administered on 05/26/20at 21:27; Start 05/26/20 at 21:00 Non-Formulary Medication (Tiotropium [place] (Spiriva)) 2 inh DAILY IH ; Start 05/27/20 at 09:00; Status UNV Venlafaxine HCl (Effexor) 50 mg TID PO Last administered on 05/26/20at 21:27; Start 05/26/20 at 14:00 Hydralazine HCl (Apresoline Inj) 10 mg PRN Q4HRS PRN IVP ELEVATED BP, SEE COMMENTS Last administered on 05/26/20at 20:09; Start 05/26/20 at 12:30 Albuterol/ Ipratropium (Duoneb) 3 ml RTQID NEB Last administered on 05/27/20at 07:13; Start 05/27/20 at 08:00 Lorazepam (Ativan) 2 mg Q6H PO ; Start 05/27/20 at 08:00; Stop 05/27/20 at 14:01 Acetaminophen (Tylenol) 650 mg PRN Q4HRS PRN PO PAIN; Start 05/27/20 at 08:15 Active Scripts Active Reported Venlafaxine Hcl Er (Venlafaxine Hcl) 150 Mg Tab.er.24 1 Tab PO DAILY 30 Days Trazodone Hcl 50 Mg Tablet 3 Tab PO QHS Spiriva (Tiotropium [place]) 18 Mcg Cap.w.dev 2 Inh IH DAILY Prazosin Hcl 1 Mg Capsule 1 Cap PO QHS Robaxin-750 (Methocarbamol) 750 Mg Tablet 1 Tab PO TID PRN 30 Days Hydroxyzine Hcl 25 Mg Tablet 1 Tab PO TID PRN Proair Hfa Inhaler (Albuterol Sulfate) 8.5 Gm Hfa.aer.ad 2 Puff IH PRN Q4-6HRS PRN 21 Days Vitals/I & O Vital Sign - Last 24 Hours 05/26/20 05/26/20 05/26/20 05/26/20 09:00 09:51 11:00 12:14 Temp 97.4 98.1 97.4 98.1 Pulse 101 108 Resp 20 20 20 B/P (MAP) 174/108 (130) 173/107 (129) Pulse Ox 97 95 O2 Delivery Nasal Cannula Nasal Cannula Nasal Cannula Nasal Cannula O2 Flow Rate 2.0 3.0 2.0 05/26/20 05/26/20 05/26/20 05/26/20 12:22 12:52 12:52 15:11 Temp 97.8 97.8 Pulse 108 121 Resp 16 20 B/P (MAP) 173/107 139/84 (102) Pulse Ox 95 94 O2 Delivery Nasal Cannula Nasal Cannula Nasal Cannula O2 Flow Rate 2.0 2.0 05/26/20 05/26/20 05/26/20 05/26/20 16:07 19:00 19:49 20:00 Temp 98.1 98.1 Pulse 109 Resp 18 B/P (MAP) 169/105 (126) Pulse Ox 96 90 96 O2 Delivery Nasal Cannula Nasal Cannula Nasal Cannula Nasal Cannula O2 Flow Rate 2.0 3.0 2.0 2.0 05/26/20 05/26/20 05/26/20 05/26/20 20:09 21:27 21:39 22:30 Pulse 109 109 Resp 18 B/P (MAP) 169/105 169/105 Pulse Ox 92 O2 Delivery Nasal Cannula O2 Flow Rate 3.0 05/26/20 05/27/20 05/27/20 05/27/20 23:00 03:00 07:00 07:14 Temp 97.6 97.8 97.8 97.6 97.8 97.8 Pulse 133 113 106 Resp 18 18 18 B/P (MAP) 156/75 (102) 141/86 (104) 174/99 (124) Pulse Ox 92 94 95 96 O2 Delivery Nasal Cannula Nasal Cannula Nasal Cannula Nasal Cannula O2 Flow Rate 3.0 3.0 3.0 2.0 05/27/20 07:57 O2 Delivery Nasal Cannula O2 Flow Rate 2.5 Intake and Output 05/26/20 05/26/20 05/27/20 15:00 23:00 07:00 Intake Total 1000 ml 30 ml Output Total 400 ml Balance 1000 ml -370 ml Justicifation of Admission Dx: Justifications for Admission: Justification of Admission Dx: Yes RAYMUNDO FORD MD May 27, 2020 08:23
[2020-05-27] MEDS: ACETAMINOPHEN 325 MG TABLET. PO PRN (08:54)
[2020-05-27] MEDS: LORazepam 1 MG TABLET PO SCH ×2 (08:54→13:03)
[2020-05-27] MEDS: PANTOPRAZOLE IV PUSH 40 MG VIAL. IVP SCH (08:54)
[2020-05-27] MEDS: ENOXAPARIN 40 MG/0.4 ML SYRINGE. SQ SCH (08:54)
[2020-05-27] MEDS: hydrALAZINE 20 MG/ML VIAL. IVP PRN (08:55)
[2020-05-27] MEDS: VENLAFAXINE 50 MG TABLET. PO SCH ×3 (08:55→20:47)
[2020-05-27] MEDS: MULTIVIT INFUSN,ADULT 4,VIT K 10 ML, THIAMINE INJ 100 MG, FOLIC ACID INJ 1 MG in IV NOR... IV SCH (08:56)
[2020-05-27] MEDS ORDERED: NON FORMULARY ITEM (Tiotropium Bromide (Spiriva) 2 INH) IH SCH (09:00)
--- NOTE | 2020-05-27 10:02 | PDOC ---
Subjective: Subjective: Has abdominal pain - later says it's a little better though rated to nurse as 9/10. Objective: Objective: Nurse present - getting Ativan, has been shaky. Has been taking sips of water. Vital Signs: Vital Signs Date Time Temp Pulse Resp B/P (MAP) Pulse Ox O2 Delivery O2 Flow Rate FiO2 05/27/20 08:55 106 174/99 05/27/20 07:57 Nasal Cannula 2.5 05/27/20 07:14 96 05/27/20 07:00 97.8 18 97.8 Labs: Laboratory Tests Test 05/27/20 06:10 White Blood Count 10.4 x10^3/uL Red Blood Count 3.96 x10^6/uL Hemoglobin 13.4 g/dL Hematocrit 39.7 % Mean Corpuscular Volume 100 fL Mean Corpuscular Hemoglobin 34 pg Mean Corpuscular Hemoglobin Concent 34 g/dL Red Cell Distribution Width 13.3 % Platelet Count 142 x10^3/uL Neutrophils (%) (Auto) 88 % Lymphocytes (%) (Auto) 5 % Monocytes (%) (Auto) 6 % Eosinophils (%) (Auto) 0 % Basophils (%) (Auto) 0 % Neutrophils # (Auto) 9.1 x10^3/uL Lymphocytes # (Auto) 0.6 x10^3/uL Monocytes # (Auto) 0.6 x10^3/uL Eosinophils # (Auto) 0.0 x10^3/uL Basophils # (Auto) 0.0 x10^3/uL Segmented Neutrophils % 98 % Lymphocytes % 1 % Monocytes % 1 % Platelet Estimate Adequate Sodium Level 141 mmol/L Potassium Level 3.4 mmol/L Chloride Level 105 mmol/L Carbon Dioxide Level 29 mmol/L Anion Gap 7 Blood Urea Nitrogen 10 mg/dL Creatinine 0.7 mg/dL Estimated GFR (Cockcroft-Gault) 85.4 BUN/Creatinine Ratio 14 Glucose Level 100 mg/dL Calcium Level 8.4 mg/dL Total Bilirubin 0.5 mg/dL Aspartate Amino Transf (AST/SGOT) 24 U/L Alanine Aminotransferase (ALT/SGPT) 30 U/L Alkaline Phosphatase 78 U/L Total Protein 6.1 g/dL Albumin 2.7 g/dL Albumin/Globulin Ratio 0.8 Imaging: RUQ US 05/26 No evidence of gallstones. IMPRESSION: 1. Hepatic steatosis. 2. Prominent appearing and hypoechoic pancreas probably known pancreatitis. PE: GEN: NAD LUNGS: diminished HEART: mildly tachycardic ABD: soft, quiet, mildly tender epigastrium/LUQ - some to RUQ as well NEURO/PSYCH: drowsy, falls asleep during conversation A/P: Alcoholic pancreatitis GERD, possible gastric wall thickening on CT - on PPI -- Cautiously try clear liquids. Continue PPI. Withdrawal per primary. Justicifation of Admission Dx: Justifications for Admission: Justification of Admission Dx: Yes DEEJAY GARIBAY May 27, 2020 10:02
--- NOTE | 2020-05-27 10:07 | NUR ---
SW following. Discussed with RN, pt from home, PAT cleared. Pt possibly beginning to withdraw today. NPO, might advance to clear liquid diet. SW will continue to follow.
[2020-05-27 10:31] VITALS: BP 132/82
[2020-05-27] MEDS ORDERED: POTASSIUM CHLORIDE 20 MEQ TABLET.ER. PO ONE (11:30)
[2020-05-27 14:25] VITALS: BP 143/72
--- NOTE | 2020-05-27 15:02 | PDOC ---
PULMONARY PROGRESS NOTES Vitals Vital Signs Date Time Temp Pulse Resp B/P (MAP) Pulse Ox O2 Delivery O2 Flow Rate FiO2 05/27/20 14:25 98.3 106 18 143/72 (95) 97 Nasal Cannula 3.0 98.3 Lungs: Other (diminished) Labs Laboratory Tests Test 05/26/20 05:05 05/26/20 08:00 05/26/20 08:25 05/27/20 06:10 White Blood Count 7.8 x10^3/uL (4.0-11.0) 10.4 x10^3/uL (4.0-11.0) Red Blood Count 4.33 x10^6/uL (3.50-5.40) 3.96 x10^6/uL (3.50-5.40) Hemoglobin 14.7 g/dL (12.0-15.5) 13.4 g/dL (12.0-15.5) Hematocrit 42.6 % (36.0-47.0) 39.7 % (36.0-47.0) Mean Corpuscular Volume 98 fL (79-100) 100 fL (79-100) Mean Corpuscular Hemoglobin 34 pg (25-35) 34 pg (25-35) Mean Corpuscular Hemoglobin Concent 35 g/dL (31-37) 34 g/dL (31-37) Red Cell Distribution Width 13.4 % (11.5-14.5) 13.3 % (11.5-14.5) Platelet Count 195 x10^3/uL (140-400) 142 x10^3/uL (140-400) Neutrophils (%) (Auto) 65 % (31-73) 88 % (31-73) Lymphocytes (%) (Auto) 26 % (24-48) 5 % (24-48) Monocytes (%) (Auto) 7 % (0-9) 6 % (0-9) Eosinophils (%) (Auto) 1 % (0-3) 0 % (0-3) Basophils (%) (Auto) 0 % (0-3) 0 % (0-3) Neutrophils # (Auto) 5.1 x10^3/uL (1.8-7.7) 9.1 x10^3/uL (1.8-7.7) Lymphocytes # (Auto) 2.0 x10^3/uL (1.0-4.8) 0.6 x10^3/uL (1.0-4.8) Monocytes # (Auto) 0.6 x10^3/uL (0.0-1.1) 0.6 x10^3/uL (0.0-1.1) Eosinophils # (Auto) 0.1 x10^3/uL (0.0-0.7) 0.0 x10^3/uL (0.0-0.7) Basophils # (Auto) 0.0 x10^3/uL (0.0-0.2) 0.0 x10^3/uL (0.0-0.2) Prothrombin Time 11.7 SEC (11.7-14.0) Prothromb Time International Ratio 0.9 (0.8-1.1) Activated Partial Thromboplast Time 23 SEC (24-38) Sodium Level 142 mmol/L (136-145) 141 mmol/L (136-145) Potassium Level 3.0 mmol/L (3.5-5.1) 3.4 mmol/L (3.5-5.1) Chloride Level 100 mmol/L (98-107) 105 mmol/L (98-107) Carbon Dioxide Level 30 mmol/L (21-32) 29 mmol/L (21-32) Anion Gap 12 (6-14) 7 (6-14) Blood Urea Nitrogen 7 mg/dL (7-20) 10 mg/dL (7-20) Creatinine 0.8 mg/dL (0.6-1.0) 0.7 mg/dL (0.6-1.0) Estimated GFR (Cockcroft-Gault) 73.2 85.4 BUN/Creatinine Ratio 9 (6-20) 14 (6-20) Glucose Level 109 mg/dL (70-99) 100 mg/dL (70-99) Calcium Level 9.5 mg/dL (8.5-10.1) 8.4 mg/dL (8.5-10.1) Total Bilirubin 0.4 mg/dL (0.2-1.0) 0.5 mg/dL (0.2-1.0) Aspartate Amino Transf (AST/SGOT) 46 U/L (15-37) 24 U/L (15-37) Alanine Aminotransferase (ALT/SGPT) 50 U/L (14-59) 30 U/L (14-59) Alkaline Phosphatase 101 U/L (46-116) 78 U/L (46-116) Total Protein 7.4 g/dL (6.4-8.2) 6.1 g/dL (6.4-8.2) Albumin 3.4 g/dL (3.4-5.0) 2.7 g/dL (3.4-5.0) Albumin/Globulin Ratio 0.9 (1.0-1.7) 0.8 (1.0-1.7) Lipase 63711 U/L (73-393) Urine Opiates Screen Pos (NEG) Urine Methadone Screen Neg (NEG) Urine Barbiturates Neg (NEG) Urine Phencyclidine Screen Neg (NEG) Urine Amphetamine/Methamphetamine Neg (NEG) Urine Benzodiazepines Screen Neg (NEG) Urine Cocaine Screen Neg (NEG) Urine Cannabinoids Screen Neg (NEG) Urine Ethyl Alcohol Pos (NEG) Urine Collection Type Unknown Urine Color Yellow Urine Clarity Clear Urine pH 7.0 (<5.0-8.0) Urine Specific [place] 1.020 (1.000-1.030) Urine Protein Negative mg/dL (NEG-TRACE) Urine Glucose (UA) Negative mg/dL (NEG) Urine Ketones (Stick) Negative mg/dL (NEG) Urine Blood Negative (NEG) Urine Nitrite Negative (NEG) Urine Bilirubin Negative (NEG) Urine Urobilinogen Dipstick 0.2 mg/dL (0.2 mg/dL) Urine Leukocyte Esterase Negative (NEG) Urine RBC 0 /HPF (0-2) Urine WBC 0 /HPF (0-4) Urine Squamous Epithelial Cells Mod /LPF Urine Bacteria Few /HPF (0-FEW) Segmented Neutrophils % 98 % (35-66) Lymphocytes % 1 % (24-48) Monocytes % 1 % (0-10) Platelet Estimate Adequate (ADEQUATE) Laboratory Tests Test 05/27/20 06:10 White Blood Count 10.4 x10^3/uL (4.0-11.0) Red Blood Count 3.96 x10^6/uL (3.50-5.40) Hemoglobin 13.4 g/dL (12.0-15.5) Hematocrit 39.7 % (36.0-47.0) Mean Corpuscular Volume 100 fL (79-100) Mean Corpuscular Hemoglobin 34 pg (25-35) Mean Corpuscular Hemoglobin Concent 34 g/dL (31-37) Red Cell Distribution Width 13.3 % (11.5-14.5) Platelet Count 142 x10^3/uL (140-400) Neutrophils (%) (Auto) 88 % (31-73) Lymphocytes (%) (Auto) 5 % (24-48) Monocytes (%) (Auto) 6 % (0-9) Eosinophils (%) (Auto) 0 % (0-3) Basophils (%) (Auto) 0 % (0-3) Neutrophils # (Auto) 9.1 x10^3/uL (1.8-7.7) Lymphocytes # (Auto) 0.6 x10^3/uL (1.0-4.8) Monocytes # (Auto) 0.6 x10^3/uL (0.0-1.1) Eosinophils # (Auto) 0.0 x10^3/uL (0.0-0.7) Basophils # (Auto) 0.0 x10^3/uL (0.0-0.2) Segmented Neutrophils % 98 % (35-66) Lymphocytes % 1 % (24-48) Monocytes % 1 % (0-10) Platelet Estimate Adequate (ADEQUATE) Sodium Level 141 mmol/L (136-145) Potassium Level 3.4 mmol/L (3.5-5.1) Chloride Level 105 mmol/L (98-107) Carbon Dioxide Level 29 mmol/L (21-32) Anion Gap 7 (6-14) Blood Urea Nitrogen 10 mg/dL (7-20) Creatinine 0.7 mg/dL (0.6-1.0) Estimated GFR (Cockcroft-Gault) 85.4 BUN/Creatinine Ratio 14 (6-20) Glucose Level 100 mg/dL (70-99) Calcium Level 8.4 mg/dL (8.5-10.1) Total Bilirubin 0.5 mg/dL (0.2-1.0) Aspartate Amino Transf (AST/SGOT) 24 U/L (15-37) Alanine Aminotransferase (ALT/SGPT) 30 U/L (14-59) Alkaline Phosphatase 78 U/L (46-116) Total Protein 6.1 g/dL (6.4-8.2) Albumin 2.7 g/dL (3.4-5.0) Albumin/Globulin Ratio 0.8 (1.0-1.7) Medications Active Scripts Medications Dose Route/Sig Max Daily Dose Days Date Category Venlafaxine Hcl Er (Venlafaxine Hcl) 150 Mg Tab.er.24 1 Tab PO DAILY 30 05/26/20 Reported Trazodone Hcl 50 Mg Tablet 3 Tab PO QHS 05/26/20 Reported Spiriva (Tiotropium Macy) 18 Mcg Cap.w.dev 2 Inh IH DAILY 05/26/20 Reported Prazosin Hcl 1 Mg Capsule 1 Cap PO QHS 05/26/20 Reported Robaxin-750 (Methocarbamol) 750 Mg Tablet 1 Tab PO TID PRN 30 05/26/20 Reported Hydroxyzine Hcl 25 Mg Tablet 1 Tab PO TID PRN 05/26/20 Reported Proair Hfa Inhaler (Albuterol Sulfate) 8.5 Gm Hfa.aer.ad 2 Puff IH PRN Q4-6HRS PRN 21 05/26/20 Reported Impression . Full note dictated acute exacerbation of COPD, acute pancreatitis TORRES HERNANDEZ MD May 27, 2020 15:02
--- NOTE | 2020-05-27 15:18 | CONS ---
DATE OF CONSULTATION: 05/27/2020 ATTENDING PHYSICIAN: Samuel Ching MD REASON FOR CONSULTATION: The patient seen in pulmonary consultation at the request of Dr. Ching for increasing shortness of air. HISTORY OF PRESENT ILLNESS: The patient is a 59-year-old with a history of COPD, normally follows at the [facility]. She presented with abdominal discomfort, nausea, vomiting. She was diagnosed with pancreatitis. She is an alcoholic. I was asked to see her in consultation as a result of increasing shortness of breath. The patient has underlying COPD. No oxygen supplementation at home. She does drink on a daily basis, has had no recent frequent acute exacerbations of COPD. Denies any hemoptysis. She has never been on the ventilator. PAST MEDICAL HISTORY: COPD, tobaccoism, alcoholism. PAST SURGICAL HISTORY: Status post appendectomy. FAMILY HISTORY: Remarkable for alcoholism. SOCIAL HISTORY: She smokes on a daily basis, drinks heavily. REVIEW OF SYSTEMS: As indicated above, otherwise, a 10-point system was reviewed and negative. CONSTITUTIONAL: No fever or chills. EYES: No change in visual acuity. HENT: No nasal congestion or sore throat. PULMONARY: As indicated above. CARDIOVASCULAR: No chest pain. No pressure. GASTROINTESTINAL: As indicated above. GENITOURINARY: No dysuria or frequency. MUSCULOSKELETAL: No localized muscle aches or joint pains. SKIN: No new skin rashes. NEUROLOGIC: No headaches, diplopia or blurred vision. ALLERGIES: TO MULTIPLE MEDICATIONS, PLEASE SEE THE LIST. PHYSICAL EXAMINATION: GENERAL: The patient appeared to be older than stated age. VITAL SIGNS: Stable. She is afebrile. O2 saturation on 2 liters was greater than 92%. NECK: Jugular venous distention was not elevated. LUNGS: Unilateral wheeze on the right, suspect secondary to mucus within the large airway. CARDIOVASCULAR: Regular rate and rhythm with S1, S2, no S3. ABDOMEN: Diffuse tenderness. EXTREMITIES: No clubbing, cyanosis or edema. NEUROLOGICAL: The patient was awake, alert, following commands. A detailed neuro exam was not performed. LABORATORY DATA: White count was normal. INR was 0.9. Electrolytes were noted. Potassium was low. Albumin was low. Lipase was markedly elevated. Chest x-ray pending. IMPRESSION: 1. Progressive dyspnea secondary to acute exacerbation of chronic obstructive pulmonary disease. 2. Acute pancreatitis. 3. Alcoholism. 4. Nausea and vomiting secondary to above. 5. Tobacco dependent. PLAN: 1. Continue current support with IV fluids. 2. Banana bag. 3. Alcohol withdrawal protocol. 4. Nebulized treatments. 5. Oxygen supplementation. 6. We will follow along. I do appreciate the privilege in sharing in the patient's care. TORRES HERNANDEZ MD DR: MOUNIKA/nicolasa JOB#: [id number] / [id number]
--- NOTE | 2020-05-27 15:31 | RAD ---
CHEST AP ONLY History: Reason: COPD / Spl. Instructions: / History: Comparison: None. Findings: Mild right basilar linear atelectasis. Hyperinflation. No consolidation or pleural effusion. Normal heart size. No pneumothorax. Impression: 1. Hyperinflation with mild right basilar linear atelectasis. Electronically signed by: Gilberto Lerma DO (05/27/2020 3:28 PM) [id number]
[2020-05-27] MEDS: fentaNYL PF VIAL 100 MCG/2 ML VIAL IVP PRN ×2 (18:08→20:48)
[2020-05-27 19:00] VITALS: BP 168/96
[2020-05-27] MEDS: hydrOXYzine 25 MG TABLET PO PRN (20:47)
[2020-05-27] MEDS: traZODone 50 MG TABLET. PO SCH (20:47)
[2020-05-27] MEDS: PRAZOSIN 1 MG CAPSULE. PO SCH (20:47)
[2020-05-27 23:00] VITALS: BP 139/77
[2020-05-28] MEDS: fentaNYL PF VIAL 100 MCG/2 ML VIAL IVP PRN ×4 (00:44→19:13)
[2020-05-28 03:00] VITALS: BP 132/77
[2020-05-28] MEDS: PANTOPRAZOLE IV PUSH 40 MG VIAL. IVP SCH (05:57)
[2020-05-28 07:27] VITALS: BP 158/99
[2020-05-28 07:33] LABS: ALBUMIN 2.7 g/dL (3.4-5.0); ALBUMIN/GLOBULIN RATIO 0.7 (1.0-1.7); CALCIUM 8.9 mg/dL (8.5-10.1); CREATININE 0.6 mg/dL (0.6-1.0); TOTAL BILIRUBIN 0.6 mg/dL (0.2-1.0); TOTAL PROTEIN 6.4 g/dL (6.4-8.2)
[2020-05-28] MEDS: IPRATRPIUM/ALBUTEROL 0.5/2.5MG 3 ML NEBU. NEB SCH ×4 (07:44→20:01)
[2020-05-28] MEDS: VENLAFAXINE 50 MG TABLET. PO SCH ×3 (09:01→21:26)
[2020-05-28] MEDS: MULTIVIT INFUSN,ADULT 4,VIT K 10 ML, THIAMINE INJ 100 MG, FOLIC ACID INJ 1 MG in IV NOR... IV SCH (09:01)
[2020-05-28] MEDS: METHOCARBAMOL 750 MG TABLET PO PRN (09:01)
[2020-05-28] MEDS: ENOXAPARIN 40 MG/0.4 ML SYRINGE. SQ SCH (09:02)
--- NOTE | 2020-05-28 09:28 | PDOC ---
PULMONARY PROGRESS NOTES Subjective Patient denies increasing, shortness of breath, no chest pain continue abdominal pain she is currently on liquid diet Vitals Vital Signs Date Time Temp Pulse Resp B/P (MAP) Pulse Ox O2 Delivery O2 Flow Rate FiO2 05/28/20 07:44 96 Room Air 05/28/20 07:27 98.0 118 18 158/99 (118) 2.0 98.0 ROS: No Chest Pain, No Increase Cough General: Alert Lungs: Crackles, Other (diminished) Cardiovascular: S2 Abdomen: Soft Neuro Exam: Alert Extremities: No Edema Skin: Warm Labs Laboratory Tests Test 05/27/20 06:10 05/28/20 05:40 White Blood Count 10.4 x10^3/uL (4.0-11.0) Red Blood Count 3.96 x10^6/uL (3.50-5.40) Hemoglobin 13.4 g/dL (12.0-15.5) Hematocrit 39.7 % (36.0-47.0) Mean Corpuscular Volume 100 fL (79-100) Mean Corpuscular Hemoglobin 34 pg (25-35) Mean Corpuscular Hemoglobin Concent 34 g/dL (31-37) Red Cell Distribution Width 13.3 % (11.5-14.5) Platelet Count 142 x10^3/uL (140-400) Neutrophils (%) (Auto) 88 % (31-73) Lymphocytes (%) (Auto) 5 % (24-48) Monocytes (%) (Auto) 6 % (0-9) Eosinophils (%) (Auto) 0 % (0-3) Basophils (%) (Auto) 0 % (0-3) Neutrophils # (Auto) 9.1 x10^3/uL (1.8-7.7) Lymphocytes # (Auto) 0.6 x10^3/uL (1.0-4.8) Monocytes # (Auto) 0.6 x10^3/uL (0.0-1.1) Eosinophils # (Auto) 0.0 x10^3/uL (0.0-0.7) Basophils # (Auto) 0.0 x10^3/uL (0.0-0.2) Segmented Neutrophils % 98 % (35-66) Lymphocytes % 1 % (24-48) Monocytes % 1 % (0-10) Platelet Estimate Adequate (ADEQUATE) Sodium Level 141 mmol/L (136-145) 138 mmol/L (136-145) Potassium Level 3.4 mmol/L (3.5-5.1) 3.0 mmol/L (3.5-5.1) Chloride Level 105 mmol/L (98-107) 101 mmol/L (98-107) Carbon Dioxide Level 29 mmol/L (21-32) 30 mmol/L (21-32) Anion Gap 7 (6-14) 7 (6-14) Blood Urea Nitrogen 10 mg/dL (7-20) 5 mg/dL (7-20) Creatinine 0.7 mg/dL (0.6-1.0) 0.6 mg/dL (0.6-1.0) Estimated GFR (Cockcroft-Gault) 85.4 102.0 BUN/Creatinine Ratio 14 (6-20) 8 (6-20) Glucose Level 100 mg/dL (70-99) 70 mg/dL (70-99) Calcium Level 8.4 mg/dL (8.5-10.1) 8.9 mg/dL (8.5-10.1) Total Bilirubin 0.5 mg/dL (0.2-1.0) 0.6 mg/dL (0.2-1.0) Aspartate Amino Transf (AST/SGOT) 24 U/L (15-37) 23 U/L (15-37) Alanine Aminotransferase (ALT/SGPT) 30 U/L (14-59) 28 U/L (14-59) Alkaline Phosphatase 78 U/L (46-116) 79 U/L (46-116) Total Protein 6.1 g/dL (6.4-8.2) 6.4 g/dL (6.4-8.2) Albumin 2.7 g/dL (3.4-5.0) 2.7 g/dL (3.4-5.0) Albumin/Globulin Ratio 0.8 (1.0-1.7) 0.7 (1.0-1.7) Amylase Level 343 U/L (25-115) Lipase 1743 U/L (73-393) Laboratory Tests Test 05/28/20 05:40 Sodium Level 138 mmol/L (136-145) Potassium Level 3.0 mmol/L (3.5-5.1) Chloride Level 101 mmol/L (98-107) Carbon Dioxide Level 30 mmol/L (21-32) Anion Gap 7 (6-14) Blood Urea Nitrogen 5 mg/dL (7-20) Creatinine 0.6 mg/dL (0.6-1.0) Estimated GFR (Cockcroft-Gault) 102.0 BUN/Creatinine Ratio 8 (6-20) Glucose Level 70 mg/dL (70-99) Calcium Level 8.9 mg/dL (8.5-10.1) Total Bilirubin 0.6 mg/dL (0.2-1.0) Aspartate Amino Transf (AST/SGOT) 23 U/L (15-37) Alanine Aminotransferase (ALT/SGPT) 28 U/L (14-59) Alkaline Phosphatase 79 U/L (46-116) Total Protein 6.4 g/dL (6.4-8.2) Albumin 2.7 g/dL (3.4-5.0) Albumin/Globulin Ratio 0.7 (1.0-1.7) Amylase Level 343 U/L (25-115) Lipase 1743 U/L (73-393) Medications Active Scripts Medications Dose Route/Sig Max Daily Dose Days Date Category Venlafaxine Hcl Er (Venlafaxine Hcl) 150 Mg Tab.er.24 1 Tab PO DAILY 30 05/26/20 Reported Trazodone Hcl 50 Mg Tablet 3 Tab PO QHS 05/26/20 Reported Spiriva (Tiotropium [place]wey) 18 Mcg Cap.w.dev 2 Inh IH DAILY 05/26/20 Reported Prazosin Hcl 1 Mg Capsule 1 Cap PO QHS 05/26/20 Reported Robaxin-750 (Methocarbamol) 750 Mg Tablet 1 Tab PO TID PRN 30 05/26/20 Reported Hydroxyzine Hcl 25 Mg Tablet 1 Tab PO TID PRN 05/26/20 Reported Proair Hfa Inhaler (Albuterol Sulfate) 8.5 Gm Hfa.aer.ad 2 Puff IH PRN Q4-6HRS PRN 21 05/26/20 Reported Impression . IMPRESSION: 1. Progressive dyspnea secondary to acute exacerbation of chronic obstructive pulmonary disease. 2. Acute pancreatitis. 3. Alcoholism. 4. Nausea and vomiting secondary to above. 5. Tobacco dependent. Plan . We will continue current support 1. Continue current support with IV fluids. 2. Banana bag. 3. Alcohol withdrawal protocol. 4. Nebulized treatments. 5. Oxygen supplementation. TORRES HERNANDEZ MD May 28, 2020 09:28
--- NOTE | 2020-05-28 11:06 | PDOC ---
Subjective: Subjective: Pain is better, tolerating clears - no increase in pain after eating. Objective: Vital Signs: Vital Signs Date Time Temp Pulse Resp B/P (MAP) Pulse Ox O2 Delivery O2 Flow Rate FiO2 05/28/20 08:00 Room Air 05/28/20 07:44 96 05/28/20 07:27 98.0 118 18 158/99 (118) 2.0 98.0 Labs: Laboratory Tests Test 05/28/20 05:40 Sodium Level 138 mmol/L Potassium Level 3.0 mmol/L Chloride Level 101 mmol/L Carbon Dioxide Level 30 mmol/L Anion Gap 7 Blood Urea Nitrogen 5 mg/dL Creatinine 0.6 mg/dL Estimated GFR (Cockcroft-Gault) 102.0 BUN/Creatinine Ratio 8 Glucose Level 70 mg/dL Calcium Level 8.9 mg/dL Total Bilirubin 0.6 mg/dL Aspartate Amino Transf (AST/SGOT) 23 U/L Alanine Aminotransferase (ALT/SGPT) 28 U/L Alkaline Phosphatase 79 U/L Total Protein 6.4 g/dL Albumin 2.7 g/dL Albumin/Globulin Ratio 0.7 Amylase Level 343 U/L Lipase 1743 U/L PE: GEN: NAD - looks better today LUNGS: diminished HEART: tachycardic ABD: NABS, S/ND/NT NEURO/PSYCH: A & O 3, a bit tremulous A/P: Alcoholic pancreatitis GERD, possible gastric wall thickening on CT -- Change to PO PPI. Try full liquids. Justicifation of Admission Dx: Justifications for Admission: Justification of Admission Dx: Yes DEEJAY GARIBAY May 28, 2020 11:06
[2020-05-28 11:29] VITALS: BP 153/93
[2020-05-28] MEDS ORDERED: hydrOXYzine 25 MG TABLET PO PRN (11:45)
[2020-05-28] MEDS: LORazepam 0.5 MG TABLET PO PRN (12:04)
[2020-05-28] MEDS: PANTOPRAZOLE 40 MG TABLET.DR. PO SCH (12:04)
[2020-05-28] MEDS: ACETAMINOPHEN 325 MG TABLET. PO PRN (14:41)
[2020-05-28 15:19] VITALS: BP 159/93
--- NOTE | 2020-05-28 15:43 | NUR ---
SW following. Discussed with RN, PT/OT recommending SNU. SW met with pt (no isolation precautions at the time), pt would prefer to go home with home health. Does not have a preference. Pt signed choice of vendor form. Pt on advancing diet as tolerated. SW will continue to follow.
--- NOTE | 2020-05-28 17:32 | PDOC ---
PROGRESS NOTES Chief Complaint Chief Complaint IMPRESSION========= Pancreatitis, alcoholic, acute, Alcohol induced acute pancreatitis without necrosis or infection Findings of acute pancreatitis with parenchymal edema best appreciated in the pancreatic head. ON CT 05/26 No overt findings of parenchymal necrosis or abscess formation severe alcohol abuse copd GI CONSULT clear liquid diet IV BANANA BAG PAIN CONTROL DVT PROPHYLAXIS CIWA PROTOCOL r/o gallstones for completeness. consult pulm VTE Prophylaxis Ordered VTE Prophylaxis Devices: Yes VTE Pharmacological Prophylaxi: Yes 39 MIN pt exam, chart review, > 50% of time spent with exam, chart review, pt care coordination Justicifation of Admission Dx: Justicifation of Admission Dx: Justifications for Admission: Justification of Admission Dx: Yes History of Present Illness History of Present Illness Identification/Chief Complaint Chief Complaint seen in er with severe pancreatitis 59-year-old female with a history of COPD and presented with, epigastric abdominal abdominal pain and nausea vomiting. Patient states she went to bed last night felt normal woke up about hour ago with nausea vomiting and abdominal pain starting in the epigastric radiating down to lower abdomen. Denies any fevers, chills, cough, or difficulty breathing. Patient states the pain is severe in nature and worse with palpation. Past Medical History Past Medical History Past Medical History Past Medical History: COPD Past Surgical History: Appendectomy Smoking Status: Current Every Day Smoker Alcohol Use: Heavy FHX COPD Psych: Addictions Family History Family History: Alcohol Abuse Social History Smoke: <1 pack per day ALCOHOL: heavy Drugs: None 05/28/2020 No acute events reported overnight, case discussed with nursing staff patient in no acute distress no complaints during my visit patient ambulating the halls, plan of care explained detail all of her concerns addressed to the best of my abilities Vitals Vitals Vital Signs Date Time Temp Pulse Resp B/P (MAP) Pulse Ox O2 Delivery O2 Flow Rate FiO2 05/28/20 15:47 Room Air 05/28/20 15:19 98.7 99 18 159/93 (115) 96 2.0 98.7 Physical Exam General: Alert, Oriented X3, Cooperative, mild distress Heart: Regular rate Lungs: Crackles, Other (diminished) Abdomen: No hepatosplenomegaly Extremities: No cyanosis, No edema Labs LABS Laboratory Tests Test 05/28/20 05:40 Sodium Level 138 mmol/L (136-145) Potassium Level 3.0 mmol/L (3.5-5.1) Chloride Level 101 mmol/L (98-107) Carbon Dioxide Level 30 mmol/L (21-32) Anion Gap 7 (6-14) Blood Urea Nitrogen 5 mg/dL (7-20) Creatinine 0.6 mg/dL (0.6-1.0) Estimated GFR (Cockcroft-Gault) 102.0 BUN/Creatinine Ratio 8 (6-20) Glucose Level 70 mg/dL (70-99) Calcium Level 8.9 mg/dL (8.5-10.1) Total Bilirubin 0.6 mg/dL (0.2-1.0) Aspartate Amino Transf (AST/SGOT) 23 U/L (15-37) Alanine Aminotransferase (ALT/SGPT) 28 U/L (14-59) Alkaline Phosphatase 79 U/L (46-116) Total Protein 6.4 g/dL (6.4-8.2) Albumin 2.7 g/dL (3.4-5.0) Albumin/Globulin Ratio 0.7 (1.0-1.7) Amylase Level 343 U/L (25-115) Lipase 1743 U/L (73-393) Review of Systems Review of Systems 10 point review of system is negative otherwise pertinent as per HPI Assessment and Plan Assessmemt and Plan Problems Medical Problems: (1) Abdominal pain Status: Acute (2) Pancreatitis, alcoholic, acute Status: Acute Comment Review of Relevant I have reviewed the following items kamlesh (where applicable) has been applied. Labs Laboratory Tests Test 05/27/20 06:10 05/28/20 05:40 White Blood Count 10.4 x10^3/uL (4.0-11.0) Red Blood Count 3.96 x10^6/uL (3.50-5.40) Hemoglobin 13.4 g/dL (12.0-15.5) Hematocrit 39.7 % (36.0-47.0) Mean Corpuscular Volume 100 fL (79-100) Mean Corpuscular Hemoglobin 34 pg (25-35) Mean Corpuscular Hemoglobin Concent 34 g/dL (31-37) Red Cell Distribution Width 13.3 % (11.5-14.5) Platelet Count 142 x10^3/uL (140-400) Neutrophils (%) (Auto) 88 % (31-73) Lymphocytes (%) (Auto) 5 % (24-48) Monocytes (%) (Auto) 6 % (0-9) Eosinophils (%) (Auto) 0 % (0-3) Basophils (%) (Auto) 0 % (0-3) Neutrophils # (Auto) 9.1 x10^3/uL (1.8-7.7) Lymphocytes # (Auto) 0.6 x10^3/uL (1.0-4.8) Monocytes # (Auto) 0.6 x10^3/uL (0.0-1.1) Eosinophils # (Auto) 0.0 x10^3/uL (0.0-0.7) Basophils # (Auto) 0.0 x10^3/uL (0.0-0.2) Segmented Neutrophils % 98 % (35-66) Lymphocytes % 1 % (24-48) Monocytes % 1 % (0-10) Platelet Estimate Adequate (ADEQUATE) Sodium Level 141 mmol/L (136-145) 138 mmol/L (136-145) Potassium Level 3.4 mmol/L (3.5-5.1) 3.0 mmol/L (3.5-5.1) Chloride Level 105 mmol/L (98-107) 101 mmol/L (98-107) Carbon Dioxide Level 29 mmol/L (21-32) 30 mmol/L (21-32) Anion Gap 7 (6-14) 7 (6-14) Blood Urea Nitrogen 10 mg/dL (7-20) 5 mg/dL (7-20) Creatinine 0.7 mg/dL (0.6-1.0) 0.6 mg/dL (0.6-1.0) Estimated GFR (Cockcroft-Gault) 85.4 102.0 BUN/Creatinine Ratio 14 (6-20) 8 (6-20) Glucose Level 100 mg/dL (70-99) 70 mg/dL (70-99) Calcium Level 8.4 mg/dL (8.5-10.1) 8.9 mg/dL (8.5-10.1) Total Bilirubin 0.5 mg/dL (0.2-1.0) 0.6 mg/dL (0.2-1.0) Aspartate Amino Transf (AST/SGOT) 24 U/L (15-37) 23 U/L (15-37) Alanine Aminotransferase (ALT/SGPT) 30 U/L (14-59) 28 U/L (14-59) Alkaline Phosphatase 78 U/L (46-116) 79 U/L (46-116) Total Protein 6.1 g/dL (6.4-8.2) 6.4 g/dL (6.4-8.2) Albumin 2.7 g/dL (3.4-5.0) 2.7 g/dL (3.4-5.0) Albumin/Globulin Ratio 0.8 (1.0-1.7) 0.7 (1.0-1.7) Amylase Level 343 U/L (25-115) Lipase 1743 U/L (73-393) Laboratory Tests Test 05/28/20 05:40 Sodium Level 138 mmol/L (136-145) Potassium Level 3.0 mmol/L (3.5-5.1) Chloride Level 101 mmol/L (98-107) Carbon Dioxide Level 30 mmol/L (21-32) Anion Gap 7 (6-14) Blood Urea Nitrogen 5 mg/dL (7-20) Creatinine 0.6 mg/dL (0.6-1.0) Estimated GFR (Cockcroft-Gault) 102.0 BUN/Creatinine Ratio 8 (6-20) Glucose Level 70 mg/dL (70-99) Calcium Level 8.9 mg/dL (8.5-10.1) Total Bilirubin 0.6 mg/dL (0.2-1.0) Aspartate Amino Transf (AST/SGOT) 23 U/L (15-37) Alanine Aminotransferase (ALT/SGPT) 28 U/L (14-59) Alkaline Phosphatase 79 U/L (46-116) Total Protein 6.4 g/dL (6.4-8.2) Albumin 2.7 g/dL (3.4-5.0) Albumin/Globulin Ratio 0.7 (1.0-1.7) Amylase Level 343 U/L (25-115) Lipase 1743 U/L (73-393) Medications Current Medications Sodium Chloride 1,000 ml @ 1,000 mls/hr Q1H IV Last administered on 05/26/20at 05:46; Start 05/26/20 at 05:30; Stop 05/26/20 at 06:29; Status DC Ondansetron HCl (Zofran) 4 mg 1X ONCE IVP Last administered on 05/26/20at 05:44; Start 05/26/20 at 05:30; Stop 05/26/20 at 05:31; Status DC Morphine Sulfate (Morphine Sulfate) 4 mg 1X ONCE IV Last administered on 05/26/20at 05:45; Start 05/26/20 at 05:30; Stop 05/26/20 at 05:31; Status DC Iohexol (Omnipaque 300 Mg/ml) 75 ml 1X ONCE IV Last administered on 05/26/20at 06:24; Start 05/26/20 at 06:30; Stop 05/26/20 at 06:31; Status DC Info (CONTRAST GIVEN -- Rx MONITORING) 1 each PRN DAILY PRN MC SEE COMMENTS; Start 05/26/20 at 06:30; Stop 05/28/20 at 06:29; Status DC Ondansetron HCl (Zofran) 4 mg PRN Q8HRS PRN IV NAUSEA/VOMITING 1ST CHOICE; Start 05/26/20 at 06:15; Stop 05/26/20 at 09:21; Status DC Fentanyl Citrate (Fentanyl 2ml Vial) 50 mcg PRN Q1HR PRN IV SEVERE PAIN 7-10 Last administered on 05/26/20at 21:39; Start 05/26/20 at 06:15; Stop 05/27/20 at 06:14; Status DC Sodium Chloride 1,000 ml @ 150 mls/hr Q6H40M IV Last administered on 05/27/20at 01:27; Start 05/26/20 at 07:00; Stop 05/27/20 at 06:59; Status DC Acetaminophen (Tylenol) 650 mg PRN Q4HRS PRN PO FEVER > 100.3'F; Start 05/26/20 at 06:15; Stop 05/27/20 at 06:14; Status DC Multivitamins 10 ml/Thiamine HCl 100 mg/Folic Acid 1 mg/Sodium Chloride 1,011.2 ml @ 100 mls/ hr DAILY IV Last administered on 05/28/20at 09:01; Start 05/26/20 at 07:00; Stop 05/30/20 at 19:07 Lorazepam (Ativan) 2 mg Q6H PO Last administered on 05/27/20at 01:00; Start 05/26/20 at 07:00; Stop 05/27/20 at 07:57; Status DC Sodium Chloride (Normal Saline Flush) 3 ml QSHIFT PRN IV AFTER MEDS AND BLOOD DRAWS; Start 05/26/20 at 09:30 Multivitamins 10 ml/Thiamine HCl 100 mg/Folic Acid 1 mg/Sodium Chloride 1,011.2 ml @ 125 mls/ hr 1X ONCE IV ; Start 05/26/20 at 09:30; Stop 05/26/20 at 09:21; Status DC Ondansetron HCl (Zofran) 4 mg PRN Q4HRS PRN IV NAUSEA/VOMITING; Start 05/26/20 at 09:30 Acetaminophen (Tylenol Supp) 650 mg PRN Q4HRS PRN DE TEMP OVER 100.4F OR MILD PAIN; Start 05/26/20 at 09:30 Sodium Monofluorophosphate (Fleet Adult) 133 ml PRN DAILY PRN DE CONSTIPATION; Start 05/26/20 at 09:30 Docusate Sodium (Colace) 100 mg PRN BID PRN PO HARD STOOLS; Start 05/26/20 at 09:30 Albuterol/ Ipratropium (Duoneb) 3 ml Q4H NEB Last administered on 05/26/20at 19:49; Start 05/26/20 at 09:30; Stop 05/26/20 at 20:21; Status DC Lorazepam (Ativan) 0.5 mg PRN Q4HRS PRN PO ANXIETY / AGITATION Last administered on 05/28/20at 12:04; Start 05/26/20 at 09:30 Lorazepam (Ativan Inj) 2 mg PRN Q4HRS PRN IV ANXIETY / AGITATION Last administered on 05/28/20at 00:44; Start 05/26/20 at 09:30 Enoxaparin Sodium (Lovenox 40mg Syringe) 40 mg Q24H SQ Last administered on 05/28/20at 09:02; Start 05/26/20 at 09:30 Pantoprazole Sodium (PROTONIX VIAL for IV PUSH) 40 mg DAILYAC IVP Last adminis tered on 05/28/20at 05:57; Start 05/27/20 at 07:30; Stop 05/28/20 at 11:07; Status DC Albuterol Sulfate (Ventolin Neb Soln) 2.5 mg PRN Q4HRS PRN NEB WHEEZING; Start 05/26/20 at 12:30 Hydroxyzine HCl (Atarax) 25 mg TID PRN PO ANXIETY Last administered on 05/27/20at 20:47; Start 05/26/20 at 12:30; Stop 05/28/20 at 11:32; Status DC Methocarbamol (Robaxin) 750 mg TID PRN PO MUSCLE SPASMS Last administered on 05/28/20at 09:01; Start 05/26/20 at 12:30 Prazosin HCl (Minipress) 1 mg QHS PO Last administered on 05/27/20at 20:47; Start 05/26/20 at 21:00 Trazodone HCl (Desyrel) 150 mg QHS PO Last administered on 05/27/20at 20:47; Start 05/26/20 at 21:00 Non-Formulary Medication (Tiotropium [place] (Spiriva)) 2 inh DAILY IH ; Start 05/27/20 at 09:00; Status UNV Venlafaxine HCl (Effexor) 50 mg TID PO Last administered on 05/28/20 14:41; Start 05/26/20 at 14:00 Hydralazine HCl (Apresoline Inj) 10 mg PRN Q4HRS PRN IVP ELEVATED BP, SEE COMMENTS Last administered on 05/27/20at 08:55; Start 05/26/20 at 12:30 Albuterol/ Ipratropium (Duoneb) 3 ml RTQID NEB Last administered on 05/28/20at 15:46; Start 05/27/20 at 08:00 Lorazepam (Ativan) 2 mg Q6H PO Last administered on 05/27/20at 13:03; Start 05/27/20 at 08:00; Stop 05/27/20 at 14:01; Status DC Acetaminophen (Tylenol) 650 mg PRN Q4HRS PRN PO PAIN Last administered on 05/28/20 14:41; Start 05/27/20 at 08:15 Potassium Chloride (Klor-Con) 40 meq 1X ONCE PO Last administered on 05/27/20at 13:04; Start 05/27/20 at 11:30; Stop 05/27/20 at 11:31; Status DC Fentanyl Citrate (Fentanyl 2ml Vial) 50 mcg PRN Q2HR PRN IVP MOD-SEVERE PAIN Last administered on 05/28/20at 12:07; Start 05/27/20 at 17:45 Pantoprazole Sodium (Protonix) 40 mg DAILYAC PO Last administered on 05/28/20at 12:04; Start 05/28/20 at 11:30 Hydroxyzine HCl (Atarax) 25 mg PRN TID PRN PO ANXIETY, 1ST CHOICE; Start 05/28/20 at 11:45 Active Scripts Active Reported Venlafaxine Hcl Er (Venlafaxine Hcl) 150 Mg Tab.er.24 1 Tab PO DAILY 30 Days Trazodone Hcl 50 Mg Tablet 3 Tab PO QHS Spiriva (Tiotropium [place]) 18 Mcg Cap.w.dev 2 Inh IH DAILY Prazosin Hcl 1 Mg Capsule 1 Cap PO QHS Robaxin-750 (Methocarbamol) 750 Mg Tablet 1 Tab PO TID PRN 30 Days Hydroxyzine Hcl 25 Mg Tablet 1 Tab PO TID PRN Proair Hfa Inhaler (Albuterol Sulfate) 8.5 Gm Hfa.aer.ad 2 Puff IH PRN Q4-6HRS PRN 21 Days Vitals/I & O Vital Sign - Last 24 Hours 05/27/20 05/27/20 05/27/20 05/27/20 18:08 18:38 19:00 19:24 Temp 99.8 99.8 Pulse 105 Resp 20 B/P (MAP) 168/96 (120) Pulse Ox 96 96 95 O2 Delivery Room Air Room Air Nasal Cannula Room Air O2 Flow Rate 2.0 05/27/20 05/27/20 05/27/20 05/27/20 20:00 20:47 20:48 21:20 Pulse 118 Resp 20 16 B/P (MAP) 166/100 O2 Delivery Room Air Room Air Room Air 05/27/20 05/28/20 05/28/20 05/28/20 23:00 00:44 01:14 03:00 Temp 99.1 98.4 99.1 98.4 Pulse 105 108 Resp 20 18 16 18 B/P (MAP) 139/77 (97) 132/77 (95) Pulse Ox 97 98 O2 Delivery Nasal Cannula Room Air Room Air Room Air O2 Flow Rate 2.0 2.0 05/28/20 05/28/20 05/28/20 05/28/20 05:57 06:30 07:27 07:44 Temp 98.0 98.0 Pulse 118 Resp 16 16 18 B/P (MAP) 158/99 (118) Pulse Ox 94 96 O2 Delivery Room Air Room Air Room Air Room Air O2 Flow Rate 2.0 05/28/20 05/28/20 05/28/20 05/28/20 08:00 11:21 11:29 12:07 Temp 98.0 98.0 Pulse 106 Resp 18 B/P (MAP) 153/93 (113) Pulse Ox 98 O2 Delivery Room Air Room Air Room Air Room Air O2 Flow Rate 2.0 05/28/20 05/28/20 05/28/20 12:45 15:19 15:47 Temp 98.7 98.7 Pulse 99 Resp 18 B/P (MAP) 159/93 (115) Pulse Ox 96 O2 Delivery Room Air Room Air Room Air O2 Flow Rate 2.0 Intake and Output 05/27/20 05/27/20 05/28/20 15:00 23:00 07:00 Intake Total 360 ml 660 ml 5072 ml Output Total 500 ml Balance 360 ml 660 ml 4572 ml Justicifation of Admission Dx: Justifications for Admission: Justification of Admission Dx: Yes MARIO MOORE MD May 28, 2020 17:32
[2020-05-28 19:00] VITALS: BP 178/91
[2020-05-28] MEDS: traZODone 50 MG TABLET. PO SCH (21:26)
[2020-05-28] MEDS: PRAZOSIN 1 MG CAPSULE. PO SCH (21:27)
[2020-05-28 23:00] VITALS: BP 158/90
[2020-05-29 03:00] VITALS: BP 152/93
[2020-05-29] MEDS: PANTOPRAZOLE 40 MG TABLET.DR. PO SCH (05:26)
[2020-05-29 07:00] VITALS: BP_SYST 163; BP_SYST 172; BP_DIAS 106; BP_DIAS 86
[2020-05-29] MEDS: IPRATRPIUM/ALBUTEROL 0.5/2.5MG 3 ML NEBU. NEB SCH ×4 (07:50→20:23)
[2020-05-29] MEDS: VENLAFAXINE 50 MG TABLET. PO SCH ×3 (08:42→20:06)
[2020-05-29] MEDS: ENOXAPARIN 40 MG/0.4 ML SYRINGE. SQ SCH (08:42)
[2020-05-29] MEDS: fentaNYL PF VIAL 100 MCG/2 ML VIAL IVP PRN ×3 (08:44→17:53)
[2020-05-29] MEDS: MULTIVIT INFUSN,ADULT 4,VIT K 10 ML, THIAMINE INJ 100 MG, FOLIC ACID INJ 1 MG in IV NOR... IV SCH (08:45)
--- NOTE | 2020-05-29 09:21 | PDOC ---
PULMONARY PROGRESS NOTES Subjective Less abdominal pain ate something today No increasing shortness of breath Vitals Vital Signs Date Time Temp Pulse Resp B/P (MAP) Pulse Ox O2 Delivery O2 Flow Rate FiO2 05/29/20 09:18 94 Room Air 05/29/20 07:00 100 18 163/86 (111) 05/29/20 07:00 98.6 98.6 05/29/20 03:00 2.0 ROS: No Chest Pain, No Increase Cough General: Alert Lungs: Crackles, Other (diminished) Cardiovascular: S2 Abdomen: Soft Neuro Exam: Alert Extremities: No Edema Skin: Warm Labs Laboratory Tests Test 05/28/20 05:40 Sodium Level 138 mmol/L (136-145) Potassium Level 3.0 mmol/L (3.5-5.1) Chloride Level 101 mmol/L (98-107) Carbon Dioxide Level 30 mmol/L (21-32) Anion Gap 7 (6-14) Blood Urea Nitrogen 5 mg/dL (-20) Creatinine 0.6 mg/dL (0.6-1.0) Estimated GFR (Cockcroft-Gault) 102.0 BUN/Creatinine Ratio 8 (6-20) Glucose Level 70 mg/dL (70-99) Calcium Level 8.9 mg/dL (8.5-10.1) Total Bilirubin 0.6 mg/dL (0.2-1.0) Aspartate Amino Transf (AST/SGOT) 23 U/L (15-37) Alanine Aminotransferase (ALT/SGPT) 28 U/L (14-59) Alkaline Phosphatase 79 U/L (46-116) Total Protein 6.4 g/dL (6.4-8.2) Albumin 2.7 g/dL (3.4-5.0) Albumin/Globulin Ratio 0.7 (1.0-1.7) Amylase Level 343 U/L (25-115) Lipase 1743 U/L (73-393) Medications Active Scripts Medications Dose Route/Sig Max Daily Dose Days Date Category Venlafaxine Hcl Er (Venlafaxine Hcl) 150 Mg Tab.er.24 1 Tab PO DAILY 30 05/26/20 Reported Trazodone Hcl 50 Mg Tablet 3 Tab PO QHS 05/26/20 Reported Spiriva (Tiotropium [place]) 18 Mcg Cap.w.dev 2 Inh IH DAILY 05/26/20 Reported Prazosin Hcl 1 Mg Capsule 1 Cap PO QHS 05/26/20 Reported Robaxin-750 (Methocarbamol) 750 Mg Tablet 1 Tab PO TID PRN 30 05/26/20 Reported Hydroxyzine Hcl 25 Mg Tablet 1 Tab PO TID PRN 05/26/20 Reported Proair Hfa Inhaler (Albuterol Sulfate) 8.5 Gm Hfa.aer.ad 2 Puff IH PRN Q4-6HRS PRN 21 05/26/20 Reported Impression . IMPRESSION: 1. Progressive dyspnea secondary to acute exacerbation of chronic obstructive pulmonary disease. 2. Acute pancreatitis. 3. Alcoholism. 4. Nausea and vomiting secondary to above. 5. Tobacco dependent. Plan . Possible discharge in the a.m. respiratory status compensated Pancreatitis appears to be improving TORRES HERNANDEZ MD May 29, 2020 09:21
[2020-05-29 11:00] VITALS: BP 141/90
--- NOTE | 2020-05-29 11:09 | PDOC ---
Subjective: Subjective: Abd pain is better, tolerating full liquids and would like to advance. Objective: Vital Signs: Vital Signs Date Time Temp Pulse Resp B/P (MAP) Pulse Ox O2 Delivery O2 Flow Rate FiO2 05/29/20 09:18 94 Room Air 05/29/20 07:00 100 18 163/86 (111) 05/29/20 07:00 98.6 98.6 05/29/20 03:00 2.0 PE: GEN: NAD LUNGS: diminished, cough HEART: tachycardic ABD: NABS, S/ND/NT NEURO/PSYCH: A & O 3 A/P: Alcoholic pancreatitis GERD, possible gastric wall thickening on CT COPD -- Advance diet. Continue PPI. Stop alcohol. Outpt scopes. DC per primary. Justicifation of Admission Dx: Justifications for Admission: Justification of Admission Dx: Yes DEEJAY GARIBAY May 29, 2020 11:09
[2020-05-29] MEDS: POTASSIUM CHLORIDE 20 MEQ TABLET.ER. PO SCH ×3 (11:15→14:54)
[2020-05-29] MEDS ORDERED: POTASSIUM CHLORIDE 20 MEQ TABLET.ER. PO ONE ×2 (13:00→15:00)
--- NOTE | 2020-05-29 14:46 | NUR ---
SW following. Discussed with RN, pt feeling much better today. SW met with pt to discuss difficulty in finding home health with pt's insurance. [facility] does not take pt's insurance, neither does [facility]. Pt provided name of PCP at [facility], SW called to speak with a nurse at [facility] to determine if they know of any home health companies, awaiting call back. Pt stated she is fine to go home if no home health is found, she is feeling much better today. RN notified. SW will continue to follow.
--- NOTE | 2020-05-29 14:48 | PDOC ---
PROGRESS NOTES Chief Complaint Chief Complaint IMPRESSION========= Pancreatitis, alcoholic, acute, Alcohol induced acute pancreatitis without necrosis or infection Findings of acute pancreatitis with parenchymal edema best appreciated in the pancreatic head. ON CT 05/26 No overt findings of parenchymal necrosis or abscess formation severe alcohol abuse copd GI following clear liquid diet IV BANANA BAG PAIN CONTROL DVT PROPHYLAXIS CIWA PROTOCOL No evidence of cholelithiasis on ultrasound consult pulm VTE Prophylaxis Ordered VTE Prophylaxis Devices: Yes VTE Pharmacological Prophylaxi: Yes 39 MIN pt exam, chart review, > 50% of time spent with exam, chart review, pt care coordination Justicifation of Admission Dx: Justicifation of Admission Dx: Justifications for Admission: Justification of Admission Dx: Yes History of Present Illness History of Present Illness Identification/Chief Complaint Chief Complaint seen in er with severe pancreatitis 59-year-old female with a history of COPD and presented with, epigastric abdominal abdominal pain and nausea vomiting. Patient states she went to bed last night felt normal woke up about hour ago with nausea vomiting and abdominal pain starting in the epigastric radiating down to lower abdomen. Denies any fevers, chills, cough, or difficulty breathing. Patient states the pain is severe in nature and worse with palpation. Past Medical History Past Medical History Past Medical History Past Medical History: COPD Past Surgical History: Appendectomy Smoking Status: Current Every Day Smoker Alcohol Use: Heavy FHX COPD Psych: Addictions Family History Family History: Alcohol Abuse Social History Smoke: <1 pack per day ALCOHOL: heavy Drugs: None 05/28/2020 No acute events reported overnight, case discussed with nursing staff patient in no acute distress no complaints during my visit patient ambulating the halls, plan of care explained detail all of her concerns addressed to the best of my abilities 05/29/2020 Patient seems to be improved compared to yesterday. Much more alert but still quite shaky. Patient does not seem to understand the etiology of her symptoms and that alcohol is deleterious to her health. We will continue to provide counseling throughout her hospital stay all of her concerns addressed to the best of my abilities Vitals Vitals Vital Signs Date Time Temp Pulse Resp B/P (MAP) Pulse Ox O2 Delivery O2 Flow Rate FiO2 05/29/20 13:18 94 Room Air 05/29/20 11:00 98.7 101 16 141/90 (107) 98.7 05/29/20 03:00 2.0 Physical Exam Physical Exam Physical Exam General: Alert, Oriented X3, Cooperative, mild distress Heart: Regular rate Lungs: Other (diminished) Abdomen: No hepatosplenomegaly Extremities: No cyanosis, No edema General: Alert, Oriented X3, Cooperative, mild distress Heart: Regular rate Lungs: Crackles, Other (diminished) Abdomen: No hepatosplenomegaly Extremities: No cyanosis, No edema Review of Systems Review of Systems Pertinent as per HPI otherwise 14 point review of system is negative Assessment and Plan Assessmemt and Plan Problems Medical Problems: (1) Abdominal pain Status: Acute (2) Pancreatitis, alcoholic, acute Status: Acute Comment Review of Relevant I have reviewed the following items kamlesh (where applicable) has been applied. Labs Laboratory Tests Test 05/28/20 05:40 Sodium Level 138 mmol/L (136-145) Potassium Level 3.0 mmol/L (3.5-5.1) Chloride Level 101 mmol/L (98-107) Carbon Dioxide Level 30 mmol/L (21-32) Anion Gap 7 (6-14) Blood Urea Nitrogen 5 mg/dL (7-20) Creatinine 0.6 mg/dL (0.6-1.0) Estimated GFR (Cockcroft-Gault) 102.0 BUN/Creatinine Ratio 8 (6-20) Glucose Level 70 mg/dL (70-99) Calcium Level 8.9 mg/dL (8.5-10.1) Total Bilirubin 0.6 mg/dL (0.2-1.0) Aspartate Amino Transf (AST/SGOT) 23 U/L (15-37) Alanine Aminotransferase (ALT/SGPT) 28 U/L (14-59) Alkaline Phosphatase 79 U/L (46-116) Total Protein 6.4 g/dL (6.4-8.2) Albumin 2.7 g/dL (3.4-5.0) Albumin/Globulin Ratio 0.7 (1.0-1.7) Amylase Level 343 U/L (25-115) Lipase 1743 U/L (73-393) Medications Current Medications Sodium Chloride 1,000 ml @ 1,000 mls/hr Q1H IV Last administered on 05/26/20at 05:46; Start 05/26/20 at 05:30; Stop 05/26/20 at 06:29; Status DC Ondansetron HCl (Zofran) 4 mg 1X ONCE IVP Last administered on 05/26/20 05:44; Start 05/26/20 at 05:30; Stop 05/26/20 at 05:31; Status DC Morphine Sulfate (Morphine Sulfate) 4 mg 1X ONCE IV Last administered on 05/26/20at 05:45; Start 05/26/20 at 05:30; Stop 05/26/20 at 05:31; Status DC Iohexol (Omnipaque 300 Mg/ml) 75 ml 1X ONCE IV Last administered on 05/26/20at 06:24; Start 05/26/20 at 06:30; Stop 05/26/20 at 06:31; Status DC Info (CONTRAST GIVEN -- Rx MONITORING) 1 each PRN DAILY PRN MC SEE COMMENTS; Start 05/26/20 at 06:30; Stop 05/28/20 at 06:29; Status DC Ondansetron HCl (Zofran) 4 mg PRN Q8HRS PRN IV NAUSEA/VOMITING 1ST CHOICE; Start 05/26/20 at 06:15; Stop 05/26/20 at 09:21; Status DC Fentanyl Citrate (Fentanyl 2ml Vial) 50 mcg PRN Q1HR PRN IV SEVERE PAIN 7-10 Last administered on 05/26/20at 21:39; Start 05/26/20 at 06:15; Stop 05/27/20 at 06:14; Status DC Sodium Chloride 1,000 ml @ 150 mls/hr Q6H40M IV Last administered on 05/27/20at 01:27; Start 05/26/20 at 07:00; Stop 05/27/20 at 06:59; Status DC Acetaminophen (Tylenol) 650 mg PRN Q4HRS PRN PO FEVER > 100.3'F; Start 05/26/20 at 06:15; Stop 05/27/20 at 06:14; Status DC Multivitamins 10 ml/Thiamine HCl 100 mg/Folic Acid 1 mg/Sodium Chloride 1,011.2 ml @ 100 mls/ hr DAILY IV Last administered on 05/29/20at 08:45; Start 05/26/20 at 07:00; Stop 05/30/20 at 19:07 Lorazepam (Ativan) 2 mg Q6H PO Last administered on 05/27/20at 01:00; Start 05/26/20 at 07:00; Stop 05/27/20 at 07:57; Status DC Sodium Chloride (Normal Saline Flush) 3 ml QSHIFT PRN IV AFTER MEDS AND BLOOD DRAWS; Start 05/26/20 at 09:30 Multivitamins 10 ml/Thiamine HCl 100 mg/Folic Acid 1 mg/Sodium Chloride 1,011.2 ml @ 125 mls/ hr 1X ONCE IV ; Start 05/26/20 at 09:30; Stop 05/26/20 at 09:21; Status DC Ondansetron HCl (Zofran) 4 mg PRN Q4HRS PRN IV NAUSEA/VOMITING Last administered on 05/29/20 03:26; Start 05/26/20 at 09:30 Acetaminophen (Tylenol Supp) 650 mg PRN Q4HRS PRN AK TEMP OVER 100.4F OR MILD PAIN; Start 05/26/20 at 09:30 Sodium Monofluorophosphate (Fleet Adult) 133 ml PRN DAILY PRN AK CONSTIPATION; Start 05/26/20 at 09:30 Docusate Sodium (Colace) 100 mg PRN BID PRN PO HARD STOOLS; Start 05/26/20 at 09:30 Albuterol/ Ipratropium (Duoneb) 3 ml Q4H NEB Last administered on 05/26/20at 19:49; Start 05/26/20 at 09:30; Stop 05/26/20 at 20:21; Status DC Lorazepam (Ativan) 0.5 mg PRN Q4HRS PRN PO ANXIETY / AGITATION Last administered on 05/28/20at 12:04; Start 05/26/20 at 09:30 Lorazepam (Ativan Inj) 2 mg PRN Q4HRS PRN IV ANXIETY / AGITATION Last administered on 05/29/20at 03:26; Start 05/26/20 at 09:30 Enoxaparin Sodium (Lovenox 40mg Syringe) 40 mg Q24H SQ Last administered on 05/29/20at 08:42; Start 05/26/20 at 09:30 Pantoprazole Sodium (PROTONIX VIAL for IV PUSH) 40 mg DAILYAC IVP Last administered on 05/28/20at 05:57; Start 05/27/20 at 07:30; Stop 05/28/20 at 11:07; Status DC Albuterol Sulfate (Ventolin Neb Soln) 2.5 mg PRN Q4HRS PRN NEB WHEEZING; Start 05/26/20 at 12:30 Hydroxyzine HCl (Atarax) 25 mg TID PRN PO ANXIETY Last administered on 05/27/20at 20:47; Start 05/26/20 at 12:30; Stop 05/28/20 at 11:32; Status DC Methocarbamol (Robaxin) 750 mg TID PRN PO MUSCLE SPASMS Last administered on 05/28/20 09:01; Start 05/26/20 at 12:30 Prazosin HCl (Minipress) 1 mg QHS PO Last administered on 05/28/20 21:27; Start 05/26/20 at 21:00 Trazodone HCl (Desyrel) 150 mg QHS PO Last administered on 05/28/20at 21:26; Start 05/26/20 at 21:00 Non-Formulary Medication (Tiotropium [place] (Spiriva)) 2 inh DAILY IH ; Start 05/27/20 at 09:00; Status UNV Venlafaxine HCl (Effexor) 50 mg TID PO Last administered on 05/29/20at 12:57; Start 05/26/20 at 14:00 Hydralazine HCl (Apresoline Inj) 10 mg PRN Q4HRS PRN IVP ELEVATED BP, SEE COMMENTS Last administered on 05/27/20at 08:55; Start 05/26/20 at 12:30 Albuterol/ Ipratropium (Duoneb) 3 ml RTQID NEB Last administered on 05/29/20at 12:31; Start 05/27/20 at 08:00 Lorazepam (Ativan) 2 mg Q6H PO Last administered on 05/27/20at 13:03; Start 05/27/20 at 08:00; Stop 05/27/20 at 14:01; Status DC Acetaminophen (Tylenol) 650 mg PRN Q4HRS PRN PO PAIN Last administered on 05/28/20 14:41; Start 05/27/20 at 08:15 Potassium Chloride (Klor-Con) 40 meq 1X ONCE PO Last administered on 05/27/20 13:04; Start 05/27/20 at 11:30; Stop 05/27/20 at 11:31; Status DC Fentanyl Citrate (Fentanyl 2ml Vial) 50 mcg PRN Q2HR PRN IVP MOD-SEVERE PAIN Last administered on 05/29/20at 12:58; Start 05/27/20 at 17:45 Pantoprazole Sodium (Protonix) 40 mg DAILYAC PO Last administered on 05/29/20at 05:26; Start 05/28/20 at 11:30 Hydroxyzine HCl (Atarax) 25 mg PRN TID PRN PO ANXIETY, 1ST CHOICE; Start 05/28/20 at 11:45 Potassium Chloride (Klor-Con) 40 meq Q2H PO Last administered on 05/29/20at 1 2:57; Start 05/29/20 at 11:00; Stop 05/29/20 at 15:01 Potassium Chloride (Klor-Con) 40 meq 1X ONCE PO ; Start 05/29/20 at 13:00; Stop 05/29/20 at 13:01; Status UNV Potassium Chloride (Klor-Con) 40 meq 1X ONCE PO ; Start 05/29/20 at 15:00; Stop 05/29/20 at 15:01; Status UNV Active Scripts Active Reported Venlafaxine Hcl Er (Venlafaxine Hcl) 150 Mg Tab.er.24 1 Tab PO DAILY 30 Days Trazodone Hcl 50 Mg Tablet 3 Tab PO QHS Spiriva (Tiotropium [place]) 18 Mcg Cap.w.dev 2 Inh IH DAILY Prazosin Hcl 1 Mg Capsule 1 Cap PO QHS Robaxin-750 (Methocarbamol) 750 Mg Tablet 1 Tab PO TID PRN 30 Days Hydroxyzine Hcl 25 Mg Tablet 1 Tab PO TID PRN Proair Hfa Inhaler (Albuterol Sulfate) 8.5 Gm Hfa.aer.ad 2 Puff IH PRN Q4-6HRS PRN 21 Days Vitals/I & O Vital Sign - Last 24 Hours 05/28/20 05/28/20 05/28/20 05/28/20 15:19 15:47 19:00 19:13 Temp 98.7 98.9 98.7 98.9 Pulse 99 100 Resp 18 18 B/P (MAP) 159/93 (115) 178/91 (120) Pulse Ox 96 95 O2 Delivery Room Air Room Air Nasal Cannula Room Air O2 Flow Rate 2.0 2.0 05/28/20 05/28/20 05/28/20 05/28/20 19:43 20:00 20:02 21:27 Pulse 100 Resp 20 B/P (MAP) 178/91 Pulse Ox 95 98 O2 Delivery Room Air Room Air Room Air 05/28/20 05/29/20 05/29/20 05/29/20 23:00 03:00 07:00 07:00 Temp 97.9 98.3 98.6 97.9 98.3 98.6 Pulse 113 111 118 100 Resp 18 18 18 18 B/P (MAP) 158/90 (112) 152/93 (112) 172/106 (128) 163/86 (111) Pulse Ox 95 93 93 O2 Delivery Nasal Cannula Nasal Cannula Room Air O2 Flow Rate 2.0 2.0 05/29/20 05/29/20 05/29/20 05/29/20 07:38 07:51 08:44 09:18 Pulse Ox 94 94 94 O2 Delivery Room Air Room Air Room Air Room Air 05/29/20 05/29/20 05/29/20 05/29/20 11:00 12:32 12:58 13:18 Temp 98.7 98.7 Pulse 101 Resp 16 B/P (MAP) 141/90 (107) Pulse Ox 95 94 94 94 O2 Delivery Room Air Room Air Room Air Room Air Intake and Output 05/28/20 05/28/20 05/29/20 15:00 23:00 07:00 Intake Total 400 ml 200 ml 300 ml Balance 400 ml 200 ml 300 ml Justicifation of Admission Dx: Justifications for Admission: Justification of Admission Dx: Yes MARIO MOORE MD May 29, 2020 14:48
[2020-05-29 15:00] VITALS: BP 139/92
[2020-05-29] MEDS: ACETAMINOPHEN 325 MG TABLET. PO PRN ×2 (17:56→20:12)
[2020-05-29 19:40] VITALS: BP 125/75
[2020-05-29] MEDS: PRAZOSIN 1 MG CAPSULE. PO SCH (20:07)
[2020-05-29] MEDS: traZODone 50 MG TABLET. PO SCH (20:07)
[2020-05-29] MEDS: traMADol 50 MG TABLET PO PRN (20:08)
[2020-05-29] MEDS: NICOTINE 21MG PATCH. TD SCH (21:05)
[2020-05-29 23:42] VITALS: BP 132/83
[2020-05-30 03:41] VITALS: BP 141/91
[2020-05-30] MEDS: PANTOPRAZOLE 40 MG TABLET.DR. PO SCH (05:50)
[2020-05-30] MEDS: traMADol 50 MG TABLET PO PRN (05:50)
[2020-05-30 07:00] VITALS: BP 152/93
[2020-05-30] MEDS: IPRATRPIUM/ALBUTEROL 0.5/2.5MG 3 ML NEBU. NEB SCH ×2 (07:26→11:41)
[2020-05-30] MEDS ORDERED: POLYETHYLENE GLYCOL 3350 17 GM PACKET. PO PRN (08:45)
[2020-05-30] MEDS: MULTIVIT INFUSN,ADULT 4,VIT K 10 ML, THIAMINE INJ 100 MG, FOLIC ACID INJ 1 MG in IV NOR... IV SCH (09:00)
[2020-05-30] MEDS: VENLAFAXINE 50 MG TABLET. PO SCH (09:11)
[2020-05-30] MEDS: NICOTINE 21MG PATCH. TD SCH (09:11)
[2020-05-30] MEDS: ENOXAPARIN 40 MG/0.4 ML SYRINGE. SQ SCH (09:13)
[2020-05-30 09:24] LABS: BASO % 0 % (0-3); EOS # 0.2 x10^3/uL (0.0-0.7); EOS % 3 % (0-3); HEMATOCRIT 37.9 % (36.0-47.0); HEMOGLOBIN 12.7 g/dL (12.0-15.5); LYMPH # 0.8 x10^3/uL (1.0-4.8); LYMPH % 10 % (24-48); MEAN CORPUSCULAR HEMOGLOBIN 33 pg (25-35); MEAN CORPUSCULAR HGB CONC 34 g/dL (31-37); MEAN CORPUSCULAR VOLUME 100 fL (79-100); MONO # 0.7 x10^3/uL (0.0-1.1); MONO % 9 % (0-9); NEUT # 6.2 x10^3/uL (1.8-7.7); NEUT % 78 % (31-73); PLATELET COUNT 177 x10^3/uL (140-400); RED BLOOD COUNT 3.81 x10^6/uL (3.50-5.40); RED CELL DISTRIBUTION WIDTH 13.2 % (11.5-14.5)
[2020-05-30 09:27] LABS: CALCIUM 9.4 mg/dL (8.5-10.1); CREATININE 0.8 mg/dL (0.6-1.0); GFR 73.2; POTASSIUM 4.1 mmol/L (3.5-5.1)
--- NOTE | 2020-05-30 09:27 | PDOC ---
Subjective: Subjective: Didn't eat much this morning because her abdomen hurts - different pain than when admitted, wonders if could be related to not stooling for awhile. Also hesitant to take a laxative. Feels well enough to go home. Objective: Objective: D/w nurse and Dr. Rothman. Vital Signs: Vital Signs Date Time Temp Pulse Resp B/P (MAP) Pulse Ox O2 Delivery O2 Flow Rate FiO2 05/30/20 07:28 98 Room Air 05/30/20 07:00 98.4 104 16 152/93 (112) 98.4 PE: GEN: NAD LUNGS: diminished, cough HEART: mildly tachycardic ABD: quiet BS, soft, periumbilical discomfort - mild NEURO/PSYCH: A & O 3 A/P: Alcoholic pancreatitis GERD, possible gastric wall thickening on CT Constipation COPD -- Try Miralax, etc. Could back off on diet if needed. DC per primary. Continue PPI. Follow-up for outpt scopes - our office will call to schedule. Stop drinking - discussed in detail yesterday. Justicifation of Admission Dx: Justifications for Admission: Justification of Admission Dx: Yes DEEJAY GARIBAY May 30, 2020 09:27
[2020-05-30 11:00] VITALS: BP 142/94
[2020-05-30] MEDS ORDERED: BISACODYL 5 MG TABLET.DR. PO ONE (11:00)
[2020-05-30] MEDS ORDERED: POLYETHYLENE GLYCOL 3350 17 GM PACKET. PO SCH (11:00)
[2020-05-30] MEDS: LORazepam 0.5 MG TABLET PO PRN (11:16)
--- NOTE | 2020-05-30 11:22 | NUR ---
SW following. Discussed with RN, therapy now recommending home with assistance (or home health), pt agreeable to going home without home health due to insurance. SW tried [facility], they are not in network. If pt feels as though she is struggling at home, she can contact her PCP to get home health arranged through them. SW has not been able to reach pt's PCP for home health providers they know of. RN notified. Anticipate discharge home today with self care.
--- NOTE | 2020-05-30 12:15 | NUR ---
Pt escorted out to main entrance, by Lianet DOWLING. IV discontinued this early am. Pt refused to sign paperwork.
--- NOTE | 2020-05-30 12:21 | PDOC ---
PULMONARY PROGRESS NOTES Subjective Less abdominal pain ate something today No increasing shortness of breath Vitals Vital Signs Date Time Temp Pulse Resp B/P (MAP) Pulse Ox O2 Delivery O2 Flow Rate FiO2 05/30/20 11:42 Room Air 05/30/20 11:00 98.2 102 16 142/94 (110) 98 98.2 ROS: No Chest Pain, No Increase Cough General: Alert Lungs: Clear Cardiovascular: S2 Abdomen: Soft Neuro Exam: Alert Extremities: No Edema Skin: Warm Labs Laboratory Tests Test 05/30/20 08:35 White Blood Count 8.0 x10^3/uL (4.0-11.0) Red Blood Count 3.81 x10^6/uL (3.50-5.40) Hemoglobin 12.7 g/dL (12.0-15.5) Hematocrit 37.9 % (36.0-47.0) Mean Corpuscular Volume 100 fL (79-100) Mean Corpuscular Hemoglobin 33 pg (25-35) Mean Corpuscular Hemoglobin Concent 34 g/dL (31-37) Red Cell Distribution Width 13.2 % (11.5-14.5) Platelet Count 177 x10^3/uL (140-400) Neutrophils (%) (Auto) 78 % (31-73) Lymphocytes (%) (Auto) 10 % (24-48) Monocytes (%) (Auto) 9 % (0-9) Eosinophils (%) (Auto) 3 % (0-3) Basophils (%) (Auto) 0 % (0-3) Neutrophils # (Auto) 6.2 x10^3/uL (1.8-7.7) Lymphocytes # (Auto) 0.8 x10^3/uL (1.0-4.8) Monocytes # (Auto) 0.7 x10^3/uL (0.0-1.1) Eosinophils # (Auto) 0.2 x10^3/uL (0.0-0.7) Basophils # (Auto) 0.0 x10^3/uL (0.0-0.2) Sodium Level 138 mmol/L (136-145) Potassium Level 4.1 mmol/L (3.5-5.1) Chloride Level 99 mmol/L (98-107) Carbon Dioxide Level 30 mmol/L (21-32) Anion Gap 9 (6-14) Blood Urea Nitrogen 5 mg/dL (7-20) Creatinine 0.8 mg/dL (0.6-1.0) Estimated GFR (Cockcroft-Gault) 73.2 Glucose Level 160 mg/dL (70-99) Calcium Level 9.4 mg/dL (8.5-10.1) Laboratory Tests Test 05/30/20 08:35 White Blood Count 8.0 x10^3/uL (4.0-11.0) Red Blood Count 3.81 x10^6/uL (3.50-5.40) Hemoglobin 12.7 g/dL (12.0-15.5) Hematocrit 37.9 % (36.0-47.0) Mean Corpuscular Volume 100 fL (79-100) Mean Corpuscular Hemoglobin 33 pg (25-35) Mean Corpuscular Hemoglobin Concent 34 g/dL (31-37) Red Cell Distribution Width 13.2 % (11.5-14.5) Platelet Count 177 x10^3/uL (140-400) Neutrophils (%) (Auto) 78 % (31-73) Lymphocytes (%) (Auto) 10 % (24-48) Monocytes (%) (Auto) 9 % (0-9) Eosinophils (%) (Auto) 3 % (0-3) Basophils (%) (Auto) 0 % (0-3) Neutrophils # (Auto) 6.2 x10^3/uL (1.8-7.7) Lymphocytes # (Auto) 0.8 x10^3/uL (1.0-4.8) Monocytes # (Auto) 0.7 x10^3/uL (0.0-1.1) Eosinophils # (Auto) 0.2 x10^3/uL (0.0-0.7) Basophils # (Auto) 0.0 x10^3/uL (0.0-0.2) Sodium Level 138 mmol/L (136-145) Potassium Level 4.1 mmol/L (3.5-5.1) Chloride Level 99 mmol/L (98-107) Carbon Dioxide Level 30 mmol/L (21-32) Anion Gap 9 (6-14) Blood Urea Nitrogen 5 mg/dL (7-20) Creatinine 0.8 mg/dL (0.6-1.0) Estimated GFR (Cockcroft-Gault) 73.2 Glucose Level 160 mg/dL (70-99) Calcium Level 9.4 mg/dL (8.5-10.1) Medications Active Scripts Medications Dose Route/Sig Max Daily Dose Days Date Category Venlafaxine Hcl Er (Venlafaxine Hcl) 150 Mg Tab.er.24 1 Tab PO DAILY 30 05/26/20 Reported Trazodone Hcl 50 Mg Tablet 3 Tab PO QHS 05/26/20 Reported Spiriva (Tiotropium [place]) 18 Mcg Cap.w.dev 2 Inh IH DAILY 05/26/20 Reported Prazosin Hcl 1 Mg Capsule 1 Cap PO QHS 05/26/20 Reported Robaxin-750 (Methocarbamol) 750 Mg Tablet 1 Tab PO TID PRN 30 05/26/20 Reported Hydroxyzine Hcl 25 Mg Tablet 1 Tab PO TID PRN 05/26/20 Reported Proair Hfa Inhaler (Albuterol Sulfate) 8.5 Gm Hfa.aer.ad 2 Puff IH PRN Q4-6HRS PRN 21 05/26/20 Reported Impression . IMPRESSION: 1. Progressive dyspnea secondary to acute exacerbation of chronic obstructive pulmonary disease. 2. Acute pancreatitis. 3. Alcoholism. 4. Nausea and vomiting secondary to above. 5. Tobacco dependent. Plan . Possible discharge TODAY respiratory status compensated Pancreatitis appears to be improving INDIA BERGERON MD May 30, 2020 12:21
--- NOTE | 2020-05-30 16:43 | PDOC3 ---
Discharge Summary Visit Information Date of Admission: May 26, 2020 Date of Discharge: May 30, 2020 Admitting Diagnosis Comment: Pancreatitis, alcoholic, acute, Alcohol induced acute pancreatitis without necrosis or infection Findings of acute pancreatitis with parenchymal edema best appreciated in the pancreatic head. ON CT 05/26 No overt findings of parenchymal necrosis or abscess formation severe alcohol abuse Final Diagnosis Problems Medical Problems: (1) Abdominal pain secondary to acute pancreatitis without necrosis or infection currently improved Status: Acute (2) severe alcohol abuse Status: Acute COPD Brief Hospital Course Allergies Allergies Coded Allergies Type Severity Reaction Last Updated Verified Aminoglycosides Allergy Intermediate 05/26/20 Yes Cephalosporins Allergy Intermediate 05/26/20 Yes Macrolide Antibiotics Allergy Intermediate 05/26/20 Yes Penicillins Allergy Intermediate 05/26/20 Yes Quinolones Allergy Intermediate 05/26/20 Yes Sulfa (Sulfonamide Antibiotics) Allergy Intermediate 05/26/20 Yes Tetracyclines Allergy Intermediate 05/26/20 Yes Vital Signs Vital Signs Date Time Temp Pulse Resp B/P (MAP) Pulse Ox O2 Delivery O2 Flow Rate FiO2 05/30/20 11:42 Room Air 05/30/20 11:00 98.2 102 16 142/94 (110) 98 98.2 Lab Results Laboratory Tests Test 05/30/20 08:35 White Blood Count 8.0 x10^3/uL (4.0-11.0) Red Blood Count 3.81 x10^6/uL (3.50-5.40) Hemoglobin 12.7 g/dL (12.0-15.5) Hematocrit 37.9 % (36.0-47.0) Mean Corpuscular Volume 100 fL (79-100) Mean Corpuscular Hemoglobin 33 pg (25-35) Mean Corpuscular Hemoglobin Concent 34 g/dL (31-37) Red Cell Distribution Width 13.2 % (11.5-14.5) Platelet Count 177 x10^3/uL (140-400) Neutrophils (%) (Auto) 78 % (31-73) Lymphocytes (%) (Auto) 10 % (24-48) Monocytes (%) (Auto) 9 % (0-9) Eosinophils (%) (Auto) 3 % (0-3) Basophils (%) (Auto) 0 % (0-3) Neutrophils # (Auto) 6.2 x10^3/uL (1.8-7.7) Lymphocytes # (Auto) 0.8 x10^3/uL (1.0-4.8) Monocytes # (Auto) 0.7 x10^3/uL (0.0-1.1) Eosinophils # (Auto) 0.2 x10^3/uL (0.0-0.7) Basophils # (Auto) 0.0 x10^3/uL (0.0-0.2) Sodium Level 138 mmol/L (136-145) Potassium Level 4.1 mmol/L (3.5-5.1) Chloride Level 99 mmol/L (98-107) Carbon Dioxide Level 30 mmol/L (21-32) Anion Gap 9 (6-14) Blood Urea Nitrogen 5 mg/dL (7-20) Creatinine 0.8 mg/dL (0.6-1.0) Estimated GFR (Cockcroft-Gault) 73.2 Glucose Level 160 mg/dL (70-99) Calcium Level 9.4 mg/dL (8.5-10.1) Laboratory Tests Test 05/30/20 08:35 White Blood Count 8.0 x10^3/uL (4.0-11.0) Red Blood Count 3.81 x10^6/uL (3.50-5.40) Hemoglobin 12.7 g/dL (12.0-15.5) Hematocrit 37.9 % (36.0-47.0) Mean Corpuscular Volume 100 fL (79-100) Mean Corpuscular Hemoglobin 33 pg (25-35) Mean Corpuscular Hemoglobin Concent 34 g/dL (31-37) Red Cell Distribution Width 13.2 % (11.5-14.5) Platelet Count 177 x10^3/uL (140-400) Neutrophils (%) (Auto) 78 % (31-73) Lymphocytes (%) (Auto) 10 % (24-48) Monocytes (%) (Auto) 9 % (0-9) Eosinophils (%) (Auto) 3 % (0-3) Basophils (%) (Auto) 0 % (0-3) Neutrophils # (Auto) 6.2 x10^3/uL (1.8-7.7) Lymphocytes # (Auto) 0.8 x10^3/uL (1.0-4.8) Monocytes # (Auto) 0.7 x10^3/uL (0.0-1.1) Eosinophils # (Auto) 0.2 x10^3/uL (0.0-0.7) Basophils # (Auto) 0.0 x10^3/uL (0.0-0.2) Sodium Level 138 mmol/L (136-145) Potassium Level 4.1 mmol/L (3.5-5.1) Chloride Level 99 mmol/L (98-107) Carbon Dioxide Level 30 mmol/L (21-32) Anion Gap 9 (6-14) Blood Urea Nitrogen 5 mg/dL (7-20) Creatinine 0.8 mg/dL (0.6-1.0) Estimated GFR (Cockcroft-Gault) 73.2 Glucose Level 160 mg/dL (70-99) Calcium Level 9.4 mg/dL (8.5-10.1) Brief Hospital Course Ms. Benitez is a 59 old female who was seen in er with severe pancreatitis 59-year-old female with a history of COPD and presented with, epigastric abdominal abdominal pain and nausea vomiting. Patient states she went to bed last night felt normal woke up about hour ago with nausea vomiting and abdominal pain starting in the epigastric radiating down to lower abdomen. Denies any fevers, chills, cough, or difficulty breathing. Patient states the pain is severe in nature and worse with palpation. She was admitted to the medical floor for treatment of her pancreatitis, she was seen in consultation by GI and pulmonology due to her history of COPD. Patient seem to be at baseline from the respiratory status point of view. She was given extensive counseling regarding the adverse effects of alcohol intake on her health. She seemed to acknowledge and understand the implications of continued alcohol abuse. Smoking cessation counseling was also provided to the patient and once she was able to tolerate her diet she was deemed appropriate for discharge on May 28 was my first encounter with the patient she was ambulating the hallways well due to the persistent discomfort and poor oral intake she was kept on IV fluids. On the day prior to her dismissal she was tolerating her diet better and she was advanced her IV fluids were discontinued and she continued to progress well. On the day of discharge she was in good spirits all of her concerns were addressed to the best of my abilities and she was encouraged to follow-up with her primary care physician within 1 week. Assessment Assessment PE: GEN: NAD LUNGS: diminished, cough HEART: mildly tachycardic ABD: quiet BS, soft, periumbilical discomfort - mild NEURO/PSYCH: A & O 3 Discharge Information Condition at Discharge: Improved Follow Up: Weeks Disposition/Orders: D/C to Home Scheduled Prazosin Hcl (Prazosin Hcl) 1 Mg Capsule, 1 CAP PO QHS for antihypertension, #30 Ref 2 (Reported) Entered as Reported by: OMI DECKER on 05/26/201026 Last Action: Continued on 05/26/201221 by OMI DECKER Venlafaxine Hcl (Venlafaxine Hcl Er) 150 Mg Tab.er.24, 1 TAB PO DAILY for mood for 30 Days, #30 Ref 0 (Reported) Entered as Reported by: OMI DECKER on 05/26/201026 Last Action: Converted on 05/26/201221 by OMI DECKER Discontinued Medications Albuterol Sulfate (Proair Hfa Inhaler) 8.5 Gm Hfa.aer.ad, 2 PUFF IH PRN Q4-6HRS PRN for wheezing for 21 Days, #1 Ref 0 (Reported) Entered as Reported by: OMI DECKER on 05/26/201026 Last Action: Continued on 05/26/201221 by OMI DECKER Hydroxyzine Hcl (Hydroxyzine Hcl) 25 Mg Tablet, 1 TAB PO TID PRN for ANXIETY, #30 (Reported) Entered as Reported by: OMI DECKER on 05/26/201026 Last Action: Continued on 05/26/201221 by OMI DECKER Methocarbamol (Robaxin-750) 750 Mg Tablet, 1 TAB PO TID PRN for muscle spasms for 30 Days, #90 Ref 0 (Reported) Entered as Reported by: OMI DECKER on 05/26/20 102 Last Action: Continued on 05/26/201221 by OMI DECKER Tiotropium [place] (Spiriva) 18 Mcg Cap.w.dev, 2 INH IH DAILY for copd, #1 Ref 0 (Reported) Entered as Reported by: OMI DECKER on 05/26/201026 Last Action: Converted on 05/26/201221 by OMI DECKER Trazodone Hcl (Trazodone Hcl) 50 Mg Tablet, 3 TAB PO QHS for antidepressant, #30 Ref 1 (Reported) Entered as Reported by: OMI DECKER on 05/26/20 1027 Last Action: Continued on 05/26/20 1222 by OMI DECKER Justicifation of Admission Dx: Justifications for Admission: Justification of Admission Dx: Yes MARIO MOORE MD May 30, 2020 16:43
== END 2020-05-30 12:20 | disposition home or self-care (01) | DRG 438 ==
LOC: ER 04:43 → 4 NORTH 06:47
PROVIDERS: ADMIT Family Medicine; ATTEND Family Medicine
DX: K85.20 Alcohol induced acute pancreatitis without necrosis or infection (principal); R65.11 Systemic inflammatory response syndrome (SIRS) of non-infectious origin with acute organ dysfunction; J44.1 Chronic obstructive pulmonary disease with (acute) exacerbation; F10.20 Alcohol dependence, uncomplicated; F17.210 Nicotine dependence, cigarettes, uncomplicated; F41.9 Anxiety disorder, unspecified; G47.00 Insomnia, unspecified; G89.29 Other chronic pain; K21.9 Gastro-esophageal reflux disease without esophagitis; K59.00 Constipation, unspecified; K76.0 Fatty (change of) liver, not elsewhere classified; Z82.5 Family history of asthma and other chronic lower respiratory diseases; Z90.49 Acquired absence of other specified parts of digestive tract
CPT/HCPCS: 36415; 71045; 74177; 76705; 80048; 80053; 80307; 81001; 82150; 83690; 85007; 85025; 85610; 85730; 93005; 94640; 94760; 96361; 96365; 96375; 99285; 99406; C9113; J0360; J1650; J2060; J2270; J2405; J3010; J3411; J3490; J7030; Q9967; 97116-GP; 97530-GO; 97535-GO; G0378